=== PATIENT | female | born 1980 | race Caucasian/White ===

== ENCOUNTER 2018-03-29 12:41 | Emergency (ER) | payer BC ==
[2018-03-29 13:09] VITALS: RESP 18; TEMP 97.5
[2018-03-29] MEDS ORDERED: SODIUM CHLORIDE 0.9% 500 ML 500 ML IV STA (13:52)
[2018-03-29] MEDS ORDERED: DIAZEPAM 5 MG/ML 2 ML INJ IVP STA (13:53)
--- NOTE | 2018-03-29 13:56 | ED ---
General Adult HPI - General Chief complaint: Dizziness Stated complaint: Rt arm pain,coughing,dizzy Time Seen by Provider: 03/29/18 13:45 Source: patient, RN notes reviewed, old records reviewed Mode of arrival: ambulatory Limitations: no limitations - History of Present Illness Initial comments: 37-year-old female presents for evaluation of right arm pain, right-sided neck pain. Symptoms began while at rest, patient was sitting at her computer at work. She states she has had significant cough and URI symptoms. She denies any movement at the time of onset. She denies weakness, reports primarily pain in the right trapezius, right lateral neck, and proximal portion of the right upper extremity. She does report some muscle spasm and worsening pain with movement. Denies any central chest pain. Denies dyspnea. Denies numbness or weakness in the arm. - Related Data Home Medications Medication Instructions Recorded Confirmed Levothyroxine Sodium [Synthroid] 75 mcg PO DAILY 03/29/18 03/29/18 Previous Rx's Medication Instructions Recorded Ibuprofen [Motrin] 600 mg PO Q8HR PRN #24 tab 03/29/18 Allergies Allergy/AdvReac Type Severity Reaction Status Date / Time metoclopramide [From Reglan] AdvReac Hallucinati Verified 03/29/18 13:52 ons Review of Systems ROS Statement: Those systems with pertinent positive or pertinent negative responses have been documented in the HPI. ROS Other: All systems not noted in ROS Statement are negative. Past Medical History Past Medical History: Thyroid Disorder History of Any Multi-Drug Resistant Organisms: None Reported Past Surgical History: Appendectomy, Hysterectomy Past Psychological History: PTSD Smoking Status: Former smoker Past Alcohol Use History: Occasional Past Drug Use History: None Reported General Exam Limitations: no limitations General appearance: alert, in no apparent distress Head exam: Present: atraumatic, normocephalic Eye exam: Present: normal appearance, PERRL Neck exam: Present: normal inspection. Absent: tenderness, meningismus Respiratory exam: Present: normal lung sounds bilaterally. Absent: respiratory distress, wheezes Cardiovascular Exam: Present: regular rate, normal rhythm GI/Abdominal exam: Present: soft. Absent: distended, tenderness, guarding Extremities exam: Present: normal capillary refill, other (Radial pulse, 2+, normal cap refill throughout the entire right upper extremity, 2+ brachial pulse. Patient has some tenderness in the right trapezius, and deltoid. No midline tenderness. No clonus, normal range of motion of the neck. Normal sensation throughout right upper extremity). Absent: pedal edema Course Vital Signs 03/29/18 13:05 Temperature 97.5 F L Pulse Rate 75 Respiratory 18 Rate Blood Pressure 138/90 O2 Sat by Pulse 100 Oximetry EKG Findings - EKG Comments: EKG Findings:: EKG: Normal sinus rhythm with sinus arrhythmia, rate of 70, [place] interval 144, QRS duration 76, QTC 466, no ST segment changes Medical Decision Making - Medical Decision Making 37-year-old female with acute right arm pain, right trapezius pain. Distal pulses intact, normal cap refill, no sensory or motor deficit. Patient has had significant coughing spells and URI symptoms. Workup in the emergency department reveals normal white blood cell count, stable hemoglobin, normal CMP , negative troponin, negative influenza, chest x-ray negative for focal pneumonia. CT cervical spine is obtained and shows degenerative disc disease with narrowing and spondylolisthesis at C5-C6 with right foraminal encroachment. This does correspond with patient's pain. She is given Valium, Decadron in the emergency department on reevaluation she is feeling much better. She is not driving she will get a ride home. She is given Motrin prescription, and will follow-up with orthopedics. - Lab Data Result diagrams: 03/29/18 13:59 03/29/18 13:59 Lab Results 03/29/18 03/29/18 03/29/18 Range/Units 13:59 13:59 13:59 WBC 4.6 (3.8-10.6) k/uL RBC 4.82 (3.80-5.40) m/uL Hgb 14.6 (11.4-16.0) gm/dL Hct 44.0 (34.0-46.0) % MCV 91.3 (80.0-100.0) fL MCH 30.2 (25.0-35.0) pg MCHC 33.1 (31.0-37.0) g/dL RDW 12.6 (11.5-15.5) % Plt Count 294 (150-450) k/uL Neutrophils % 50 % Lymphocytes % 37 % Monocytes % 6 % Eosinophils % 3 % Basophils % 1 % Neutrophils # 2.3 (1.3-7.7) k/uL Lymphocytes # 1.7 (1.0-4.8) k/uL Monocytes # 0.3 (0-1.0) k/uL Eosinophils # 0.1 (0-0.7) k/uL Basophils # 0.1 (0-0.2) k/uL PT (9.0-12.0) sec INR (<1.2) APTT (22.0-30.0) sec Sodium 142 (137-145) mmol/L Potassium 4.8 (3.5-5.1) mmol/L Chloride 107 (98-107) mmol/L Carbon Dioxide 24 (22-30) mmol/L Anion Gap 11 mmol/L BUN 14 (7-17) mg/dL Creatinine 1.03 (0.52-1.04) mg/dL Est GFR (CKD-EPI)AfAm 79 (>60 ml/min/1.73 sqM) Est GFR (CKD-EPI)NonAf 69 (>60 ml/min/1.73 sqM) Glucose 93 (74-99) mg/dL Calcium 9.7 (8.4-10.2) mg/dL Magnesium 1.7 (1.6-2.3) mg/dL Total Bilirubin 0.7 (0.2-1.3) mg/dL AST 30 (14-36) U/L ALT 38 (9-52) U/L Alkaline Phosphatase 65 (38-126) U/L Total Creatine Kinase 251 H (30-135) U/L CK-MB (CK-2) 1.3 (0.0-2.4) ng/mL CK-MB (CK-2) Rel Index 0.5 Troponin I <0.012 (0.000-0.034) ng/mL Total Protein 8.0 (6.3-8.2) g/dL Albumin 4.7 (3.5-5.0) g/dL Influenza Type A RNA (Not Detectd) Influenza Type B (PCR) (Not Detectd) 03/29/18 03/29/18 Range/Units 13:59 13:59 WBC (3.8-10.6) k/uL RBC (3.80-5.40) m/uL Hgb (11.4-16.0) gm/dL Hct (34.0-46.0) % MCV (80.0-100.0) fL MCH (25.0-35.0) pg MCHC (31.0-37.0) g/dL RDW (11.5-15.5) % Plt Count (150-450) k/uL Neutrophils % % Lymphocytes % % Monocytes % % Eosinophils % % Basophils % % Neutrophils # (1.3-7.7) k/uL Lymphocytes # (1.0-4.8) k/uL Monocytes # (0-1.0) k/uL Eosinophils # (0-0.7) k/uL Basophils # (0-0.2) k/uL PT 9.7 (9.0-12.0) sec INR 0.9 (<1.2) APTT 24.6 (22.0-30.0) sec Sodium (137-145) mmol/L Potassium (3.5-5.1) mmol/L Chloride (98-107) mmol/L Carbon Dioxide (22-30) mmol/L Anion Gap mmol/L BUN (7-17) mg/dL Creatinine (0.52-1.04) mg/dL Est GFR (CKD-EPI)AfAm (>60 ml/min/1.73 sqM) Est GFR (CKD-EPI)NonAf (>60 ml/min/1.73 sqM) Glucose (74-99) mg/dL Calcium (8.4-10.2) mg/dL Magnesium (1.6-2.3) mg/dL Total Bilirubin (0.2-1.3) mg/dL AST (14-36) U/L ALT (9-52) U/L Alkaline Phosphatase (38-126) U/L Total Creatine Kinase (30-135) U/L CK-MB (CK-2) (0.0-2.4) ng/mL CK-MB (CK-2) Rel Index Troponin I (0.000-0.034) ng/mL Total Protein (6.3-8.2) g/dL Albumin (3.5-5.0) g/dL Influenza Type A RNA Not Detected (Not Detectd) Influenza Type B (PCR) Not Detected (Not Detectd) Disposition Clinical Impression: Cervical radiculopathy Disposition: HOME SELF-CARE Condition: Good Instructions (If sedation given, give patient instructions): Cervical Radiculopathy (ED), Acute Neck Pain (ED) Prescriptions: Ibuprofen [Motrin] 600 mg PO Q8HR PRN #24 tab PRN Reason: Pain Is patient prescribed a controlled substance at d/c from ED?: No Referrals: None,Stated [REFERRING] - 1-2 days Sara Yi DO [Doctor of Osteopathic Medicine] - 1-2 days Time of Disposition: 15:44
[2018-03-29 14:22] LABS: Basophils # (A) 0.1 k/uL (0-0.2); Basophils % (A) 1 %; Eosinophils # (A) 0.1 k/uL (0-0.7); Eosinophils % (A) 3 %; HGB 14.6 gm/dL (11.4-16.0); Lymphocytes # (A) 1.7 k/uL (1.0-4.8); Lymphocytes % (A) 37 %; MCH 30.2 pg (25.0-35.0); MCHC 33.1 g/dL (31.0-37.0); MCV 91.3 fL (80.0-100.0); Mean Platelet Volume 7.8; Monocytes # (A) 0.3 k/uL (0-1.0); Monocytes % (A) 6 %; Neutrophils # (A) 2.3 k/uL (1.3-7.7); Neutrophils % (A) 50 %; Platelet Count 294 k/uL (150-450); RBC 4.82 m/uL (3.80-5.40); RDW 12.6 % (11.5-15.5); WBC 4.6 k/uL (3.8-10.6)
[2018-03-29 14:34] LABS: Albumin 4.7 g/dL (3.5-5.0); Calcium 9.7 mg/dL (8.4-10.2); Magnesium 1.7 mg/dL (1.6-2.3); Potassium 4.8 mmol/L (3.5-5.1); Total Bilirubin 0.7 mg/dL (0.2-1.3)
[2018-03-29 14:37] LABS: INR 0.9 (<1.2); Partial Thromboplastin Time 24.6 sec (22.0-30.0); Prothrombin Time 9.7 sec (9.0-12.0)
[2018-03-29 14:49] LABS: Creatine Kinase 251 U/L (30-135)
--- NOTE | 2018-03-29 14:55 | CT ---
EXAMINATION TYPE: CT cervical spine wo con DATE OF EXAM: 03/29/2018 COMPARISON: None HISTORY: Right arm pain, Coughing and dizziness CT DLP: 336.[address] of the cervical spine was performed with bone and soft tissue window settings submitted . Coronal and sagittal reconstruction is obtained. There is normal alignment and prevertebral soft tissues. I do not see evidence for fracture or subluxation. Moderate degenerative narrowing identifi ed at C5-6 with ventral and dorsal spondylosis. Right paracentral hard disc effaces the ventral theca l sac and results in right sided foraminal encroachment. No definite evidence for central stenosis or jonas herniation. Remaining levels are within normal limits. The lung apices are clear IMPRESSION: Degenerative disc space narrowing with associated spondylosis and hard disc at C5-6 with right foraminal encroachment.
[2018-03-29 15:02] LABS: Creatine Kinase MB 1.3 ng/mL (0.0-2.4); Troponin I <0.012 ng/mL (0.000-0.034)
--- NOTE | 2018-03-29 15:25 | XR ---
EXAMINATION TYPE: XR chest 2V DATE OF EXAM: 03/29/2018 COMPARISON: NONE HISTORY: Chest pain TECHNIQUE: Frontal and lateral views of the chest are obtained. FINDINGS: There is no focal air space opacity, pleural effusion, or pneumothorax seen. The cardiac silhouette size is within normal limits. The osseous structures are intact. IMPRESSION: No acute cardiopulmonary process.
[2018-03-29] MEDS ORDERED: DEXAMETHASONE SOD PHOSPHATE 10 MG/ML 1 ML VIAL IV STA (15:34)
[2018-03-29 16:06] VITALS: BP 138/98; PULSE 68
== END 2018-03-29 16:05 | disposition home or self-care (01) ==
LOC: EC 12:41
DX: M43.12 Spondylolisthesis, cervical region (principal); M50.122 Cervical disc disorder at C5-C6 level with radiculopathy; E07.9 Disorder of thyroid, unspecified; Z87.891 Personal history of nicotine dependence; Z79.890 Hormone replacement therapy; Z88.8 Allergy status to other drugs, medicaments and biological substances
CPT/HCPCS: 36415; 93005; 80053; 82550; 82553; 83735; 84484; 85025; 85610; 85730; 87502; 71046; 72125; 99285; 96374; 96375; 96361; J1100; J3360

== ENCOUNTER 2018-08-16 05:36 | Emergency (ER) | payer BC ==
--- NOTE | 2018-08-16 05:59 | ED ---
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 Patient reports that over the past few days she's been having more frequent abdominal cramping and discomfort. She reports that after she eats she feels that food just stays in her stomach and then she'll vomit hours later. Patient reports that she was seen by a Dr. Doroteo Gama last month and had a computed tomography scan without contrast and was told everything was normal. Patient reports that this she's continued to have these symptoms on a daily basis. Today she felt nauseated he came to the ER for evaluation. Patient reports her last bowel movement was yesterday. - Related Data Previous Rx's Medication Instructions Recorded Dicyclomine [Bentyl] 10 mg PO TID PRN #30 capsule 08/16/18 Polyethylene Glycol 3350 [Miralax] 17 gm PO DAILY #527 gm 08/16/18 Allergies Allergy/AdvReac Type Severity Reaction Status Date / Time metoclopramide [From Reglan] AdvReac Hallucinati Verified 08/16/18 07:43 ons Review of Systems ROS Statement: Those systems with pertinent positive or pertinent negative responses have been documented in the HPI. ROS Other: All systems not noted in ROS Statement are negative. Past Medical History Past Medical History: Thyroid Disorder History of Any Multi-Drug Resistant Organisms: None Reported Past Surgical History: Appendectomy, Hysterectomy Additional Past Surgical History / Comment(s): malrotation surgery 2011 Past Psychological History: PTSD Smoking Status: Former smoker Past Alcohol Use History: Occasional Past Drug Use History: None Reported General Exam - General Exam Comments Initial Comments: Physical Exam GENERAL: Patient is well-developed and well-nourished. Patient is nontoxic and well- hydrated and is in no distress. HENT: Normocephalic, Atraumatic. EYES: PERRL, EOMI PULMONARY: Unlabored respirations. No audible rales rhonchi or wheezing was noted. CARDIOVASCULAR: There is a regular rate and rhythm without any murmurs gallops or rubs. ABDOMEN: Soft and nontender with normal bowel sounds. SKIN: Skin is clear with no lesions or rashes and otherwise unremarkable. : Deferred NEUROLOGIC: Patient is alert and oriented x3. Moving all extremities spontaneously MUSCULOSKELETAL: Normal extremities with adequate strength and full range of motion. No lower extremity swelling or edema. No calf tenderness. PSYCHIATRIC: Normal psychiatric evaluation Limitations: no limitations Course Vital Signs 08/16/18 08/16/18 05:52 08:17 Temperature 97.9 F 98.0 F Pulse Rate 63 62 Respiratory 18 16 Rate Blood Pressure 140/100 111/68 O2 Sat by Pulse 100 98 Oximetry Medical Decision Making - Medical Decision Making The patient was seen and evaluated, history was obtained and the patient Labs and imaging were ordered Mental was ordered for pain and Zofran for nausea Labs reveal no significant abnormalities creatinine mildly elevated at 1.1 X-ray with no acute findings I discussed with the patient options for further imaging, considering that the patient and a normal computed tomography scan of the abdomen last month I do not feel she would benefit from repeat CT scanning. As he symptoms are chronic. I discussed with the patient the risk and benefit of repeated exposures. At this point I recommended the patient follow up with gastroenterology for reevaluation and discuss with her the possibility of gastroparesis that she is having symptoms which may be due to gastroparesis. All questions pertaining care were answered return parameters were discussed patient was discharged home in stable condition. - Lab Data Result diagrams: 08/16/18 06:19 08/16/18 06:19 Lab Results 08/16/18 08/16/18 08/16/18 Range/Units 06:19 06:19 06:30 WBC 7.3 (3.8-10.6) k/uL RBC 4.60 (3.80-5.40) m/uL Hgb 13.6 (11.4-16.0) gm/dL Hct 42.2 (34.0-46.0) % MCV 91.9 (80.0-100.0) fL MCH 29.6 (25.0-35.0) pg MCHC 32.2 (31.0-37.0) g/dL RDW 12.5 (11.5-15.5) % Plt Count 279 (150-450) k/uL Neutrophils % 70 % Lymphocytes % 20 % Monocytes % 5 % Eosinophils % 4 % Basophils % 1 % Neutrophils # 5.1 (1.3-7.7) k/uL Lymphocytes # 1.5 (1.0-4.8) k/uL Monocytes # 0.3 (0-1.0) k/uL Eosinophils # 0.3 (0-0.7) k/uL Basophils # 0.1 (0-0.2) k/uL Sodium 139 (137-145) mmol/L Potassium 4.6 (3.5-5.1) mmol/L Chloride 103 (98-107) mmol/L Carbon Dioxide 28 (22-30) mmol/L Anion Gap 8 mmol/L BUN 15 (7-17) mg/dL Creatinine 1.14 H (0.52-1.04) mg/dL Est GFR (CKD-EPI)AfAm 70 (>60 ml/min/1.73 sqM) Est GFR (CKD-EPI)NonAf 61 (>60 ml/min/1.73 sqM) Glucose 92 (74-99) mg/dL Calcium 9.0 (8.4-10.2) mg/dL Total Bilirubin 0.7 (0.2-1.3) mg/dL AST 21 (14-36) U/L ALT 25 (9-52) U/L Alkaline Phosphatase 78 (38-126) U/L Total Protein 7.2 (6.3-8.2) g/dL Albumin 4.3 (3.5-5.0) g/dL Lipase 85 (23-300) U/L Urine Color Urine Appearance (Clear) Urine pH (5.0-8.0) Ur Specific [place] (1.001-1.035) Urine Protein (Negative) Urine Glucose (UA) (Negative) Urine Ketones (Negative) Urine Blood (Negative) Urine Nitrite (Negative) Urine Bilirubin (Negative) Urine Urobilinogen (<2.0) mg/dL Ur Leukocyte Esterase (Negative) Urine WBC (0-5) /hpf Ur Squamous Epith Cells (0-4) /hpf Urine Bacteria (None) /hpf Urine Mucus (None) /hpf Urine HCG, Qual Not Detected (Not Detectd) 08/16/18 Range/Units 06:30 WBC (3.8-10.6) k/uL RBC (3.80-5.40) m/uL Hgb (11.4-16.0) gm/dL Hct (34.0-46.0) % MCV (80.0-100.0) fL MCH (25.0-35.0) pg MCHC (31.0-37.0) g/dL RDW (11.5-15.5) % Plt Count (150-450) k/uL Neutrophils % % Lymphocytes % % Monocytes % % Eosinophils % % Basophils % % Neutrophils # (1.3-7.7) k/uL Lymphocytes # (1.0-4.8) k/uL Monocytes # (0-1.0) k/uL Eosinophils # (0-0.7) k/uL Basophils # (0-0.2) k/uL Sodium (137-145) mmol/L Potassium (3.5-5.1) mmol/L Chloride (98-107) mmol/L Carbon Dioxide (22-30) mmol/L Anion Gap mmol/L BUN (7-17) mg/dL Creatinine (0.52-1.04) mg/dL Est GFR (CKD-EPI)AfAm (>60 ml/min/1.73 sqM) Est GFR (CKD-EPI)NonAf (>60 ml/min/1.73 sqM) Glucose (74-99) mg/dL Calcium (8.4-10.2) mg/dL Total Bilirubin (0.2-1.3) mg/dL AST (14-36) U/L ALT (9-52) U/L Alkaline Phosphatase (38-126) U/L Total Protein (6.3-8.2) g/dL Albumin (3.5-5.0) g/dL Lipase (23-300) U/L Urine Color Yellow Urine Appearance Cloudy H (Clear) Urine pH 5.5 (5.0-8.0) Ur Specific [place] 1.023 (1.001-1.035) Urine Protein Trace H (Negative) Urine Glucose (UA) Negative (Negative) Urine Ketones Negative (Negative) Urine Blood Negative (Negative) Urine Nitrite Negative (Negative) Urine Bilirubin Negative (Negative) Urine Urobilinogen <2.0 (<2.0) mg/dL Ur Leukocyte Esterase Negative (Negative) Urine WBC 1 (0-5) /hpf Ur Squamous Epith Cells 6 H (0-4) /hpf Urine Bacteria Rare H (None) /hpf Urine Mucus Few H (None) /hpf Urine HCG, Qual (Not Detectd) Disposition Clinical Impression: Abdominal pain Disposition: HOME SELF-CARE Condition: Stable Instructions (If sedation given, give patient instructions): Acute Abdominal Pain (ED) Prescriptions: Dicyclomine [Bentyl] 10 mg PO TID PRN #30 capsule PRN Reason: Pain Polyethylene Glycol 3350 [Miralax] 17 gm PO DAILY #527 gm Is patient prescribed a controlled substance at d/c from ED?: No Referrals: Moreno Mcwilliams MD [Primary Care Provider] - 1-2 days Scott Edwards MD [STAFF PHYSICIAN] - 1-2 days Padilla Barriga MD [STAFF PHYSICIAN] - 1-2 days
[2018-08-16] MEDS ORDERED: SODIUM CHLORIDE 0.9% 1,000 ML IV STA (06:00)
[2018-08-16] MEDS ORDERED: ONDANSETRON 4 MG/2 ML VIAL IVP STA (06:00)
[2018-08-16 06:41] LABS: Basophils # (A) 0.1 k/uL (0-0.2); Basophils % (A) 1 %; Eosinophils # (A) 0.3 k/uL (0-0.7); Eosinophils % (A) 4 %; HCT 42.2 % (34.0-46.0); HGB 13.6 gm/dL (11.4-16.0); Lymphocytes # (A) 1.5 k/uL (1.0-4.8); Lymphocytes % (A) 20 %; MCH 29.6 pg (25.0-35.0); MCHC 32.2 g/dL (31.0-37.0); MCV 91.9 fL (80.0-100.0); Mean Platelet Volume 7.6; Monocytes # (A) 0.3 k/uL (0-1.0); Monocytes % (A) 5 %; Neutrophils # (A) 5.1 k/uL (1.3-7.7); Neutrophils % (A) 70 %; Platelet Count 279 k/uL (150-450); RDW 12.5 % (11.5-15.5); WBC 7.3 k/uL (3.8-10.6)
[2018-08-16 06:52] LABS: Albumin 4.3 g/dL (3.5-5.0); Potassium 4.6 mmol/L (3.5-5.1); Total Bilirubin 0.7 mg/dL (0.2-1.3); Total Protein 7.2 g/dL (6.3-8.2)
[2018-08-16 07:06] LABS: Appearance,Urine Cloudy (Clear); Bacteria,Urine Rare /hpf; Bilirubin,Urine Negative (Negative); Blood,Urine Negative (Negative); Color,Urine Yellow; Glucose,Urine (UA) Negative (Negative); Ketones,Urine Negative (Negative); Leukocyte Esterase,Urine Negative (Negative); Mucus,Urine Few /hpf; Nitrite,Urine Negative (Negative); PH, Urine 5.5 (5.0-8.0); Protein,Urine Trace (Negative); Specific Gravity,Urine 1.023 (1.001-1.035); Squamous Epithelial Cell,Urine 6 /hpf (0-4); Urobilinogen,Urine <2.0 mg/dL (<2.0); WBC,Urine 1 /hpf (0-5)
[2018-08-16] MEDS ORDERED: DICYCLOMINE 10 MG/ML 2 ML AMP IM STA (07:36)
--- NOTE | 2018-08-16 07:43 | XR ---
EXAMINATION TYPE: XR KUB DATE OF EXAM: 08/16/2018 7:12 AM CLINICAL HISTORY: Abdominal pain TECHNIQUE: Single upright image of the abdomen is obtained. COMPARISON: None. FINDINGS: Scattered gas is seen in nondilated small bowel loops. Gas and fecal material is seen in no ndilated colon. There is no or abnormal calcification appreciated. The lung bases are clear and the o sseous structures are intact. Small phleboliths are seen within the pelvis. IMPRESSION: Nonobstructive bowel gas pattern.
[2018-08-16 08:19] VITALS: BP 111/68; PULSE 62; RESP 16; TEMP 98
== END 2018-08-16 08:29 | disposition home or self-care (01) ==
LOC: EC 05:36
DX: R10.9 Unspecified abdominal pain (principal); R11.0 Nausea; R79.89 Other specified abnormal findings of blood chemistry; Z90.49 Acquired absence of other specified parts of digestive tract; Z90.710 Acquired absence of both cervix and uterus; Z87.891 Personal history of nicotine dependence; Z88.8 Allergy status to other drugs, medicaments and biological substances
CPT/HCPCS: 36415; 80053; 83690; 85025; 81001; 81025; 74018; 99284; 96374; 96361; 96372; J0500; J2405

== ENCOUNTER 2019-12-12 09:46 | Emergency (ER) | payer BC, OTHER ==
[2019-12-12] MEDS ORDERED: SODIUM CHLORIDE 0.9% 1,000 ML IV STA (10:25)
[2019-12-12] MEDS ORDERED: NALOXONE 0.4 MG/ML 1 ML VIAL IVP STA (10:26)
[2019-12-12] MEDS ORDERED: ONDANSETRON 4 MG/2 ML VIAL IVP STA (10:26)
[2019-12-12] MEDS ORDERED: ACETAMINOPHEN TAB 325 MG TAB PO STA ×2 (10:26→11:48)
[2019-12-12 11:04] LABS: Basophils # (A) 0.1 k/uL (0-0.2); Basophils % (A) 1 %; Eosinophils # (A) 0.1 k/uL (0-0.7); Eosinophils % (A) 1 %; HGB 14.9 gm/dL (11.4-16.0); Lymphocytes # (A) 1.5 k/uL (1.0-4.8); Lymphocytes % (A) 28 %; MCH 30.9 pg (25.0-35.0); MCHC 32.5 g/dL (31.0-37.0); MCV 95.2 fL (80.0-100.0); Mean Platelet Volume 8.3; Monocytes # (A) 0.2 k/uL (0-1.0); Monocytes % (A) 5 %; Neutrophils # (A) 3.3 k/uL (1.3-7.7); Neutrophils % (A) 63 %; Platelet Count 274 k/uL (150-450); RBC 4.83 m/uL (3.80-5.40); RDW 12.2 % (11.5-15.5); WBC 5.2 k/uL (3.8-10.6)
[2019-12-12 11:17] LABS: ALT 17 U/L (4-34); AST 25 U/L (14-36); Acetaminophen <10.0 ug/mL; African American GFR (CKD) 84 (>60 ml/min/1.73 sqM); Albumin 4.7 g/dL (3.5-5.0); Alcohol <10 mg/dL; Alkaline Phosphatase 72 U/L (38-126); Anion Gap 10 mmol/L; Blood Urea Nitrogen 18 mg/dL (7-17); Calcium 9.4 mg/dL (8.4-10.2); Carbon Dioxide 22 mmol/L (22-30); Chloride 107 mmol/L (98-107); Glucose 83 mg/dL (74-99); Non-African American GFR(CKD) 73 (>60 ml/min/1.73 sqM); Potassium 4.3 mmol/L (3.5-5.1); Salicylate <1.0 mg/dL; Sodium 139 mmol/L (137-145); Total Bilirubin 0.7 mg/dL (0.2-1.3)
[2019-12-12 11:22] LABS: Appearance,Urine Cloudy (Clear); Bacteria,Urine Occasional /hpf; Bilirubin,Urine Negative (Negative); Blood,Urine Negative (Negative); Color,Urine Yellow; Glucose,Urine (UA) Negative (Negative); Ketones,Urine Trace (Negative); Leukocyte Esterase,Urine Negative (Negative); Mucus,Urine Many /hpf; Nitrite,Urine Negative (Negative); PH, Urine 5.5 (5.0-8.0); Protein,Urine Trace (Negative); Specific Gravity,Urine 1.025 (1.001-1.035); Squamous Epithelial Cell,Urine 7 /hpf (0-4); Urobilinogen,Urine <2.0 mg/dL (<2.0); WBC,Urine 1 /hpf (0-5)
[2019-12-12 11:26] LABS: Amphetamine Screen,Urine Not Detected (NotDetected); Barbiturate Screen,Urine Not Detected (NotDetected); Benzodiazepines Screen,Urine Not Detected (NotDetected); Cocaine Screen,Urine Not Detected (NotDetected); Methadone Screen, Urine Not Detected (NotDetected); Opiate Screen,Urine Not Detected (NotDetected); Oxycodone Screen, Urine Not Detected (NotDetected); Phencyclidine Screen,Urine Not Detected (NotDetected); Tricyclic Antidepressant,Urine Not Detected (NotDetected); Urn Cannabinoid Scrn Not Detected (NotDetected)
--- NOTE | 2019-12-12 11:28 | ED ---
General Adult HPI - General Chief complaint: Dizziness Stated complaint: [facility] - poss drug exposure Time Seen by Provider: 12/12/19 10:12 Source: patient, RN notes reviewed, old records reviewed Mode of arrival: wheelchair Limitations: no limitations - History of Present Illness Initial comments: 39-year-old female patient to ED for evaluation of possible exposure to drugs. Patient reports that she was emptying a drug box when all of a sudden she began to feel nauseous had a headache felt weak and dizzy and a small amount of chest tightness. She reports that she was wearing gloves however she believes she may have touched her face and many of the pills were not in bags and were crushed. She denies chance of due to hysterectomy. She denies any other acute complaints. Systemic: Pt denies fatigue, fever/chills, rash. Pt denies weakness, night sweats, weight loss. Neuro: Pt denies visual disturbances, syncope or pre-syncope. HEENT: Pt denies ocular discharge or irritation, otalgia, rhinorrhea, pharyngitis or notable lymphadenopathy. Cardiopulmonary: Pt denies chest pain, SOB, heart palpitations, dyspnea on exertion. Abdominal/GI: Pt denies abdominal pain, n/v/d. : Pt denies dysuria, burning w/ urination, frequency/urgency. Denies new onset urinary or bowel incontinence. MSK: Pt denies myalgia, loss of strength or function in extremities. Neuro: Pt denies new onset weakness, paresthesias. - Related Data Home Medications Medication Instructions Recorded Confirmed Albuterol Inhaler [Ventolin Hfa 2 puff INHALATION RT-Q4H PRN 12/12/19 12/12/19 Inhaler] Escitalopram [Lexapro] 10 mg PO DAILY 12/12/19 12/12/19 Levothyroxine Sodium [Synthroid] 50 mcg PO DAILY 12/12/19 12/12/19 Modafinil [Provigil] 100 - 200 mg PO QAM 12/12/19 12/12/19 Allergies Allergy/AdvReac Type Severity Reaction Status Date / Time metoclopramide [From Reglan] AdvReac Hallucinati Verified 12/12/19 10:58 ons Review of Systems ROS Statement: Those systems with pertinent positive or pertinent negative responses have been documented in the HPI. ROS Other: All systems not noted in ROS Statement are negative. Past Medical History Past Medical History: Thyroid Disorder History of Any Multi-Drug Resistant Organisms: None Reported Past Surgical History: Appendectomy, Hysterectomy Additional Past Surgical History / Comment(s): malrotation surgery 2010 Past Psychological History: PTSD Past Alcohol Use History: Occasional Past Drug Use History: None Reported General Exam - General Exam Comments Initial Comments: Constitutional: NAD, AOX3, Pt has pleasant affect. HEENT: NC/AT, trachea midline, neck supple, no lymphadenopathy. Posterior pharynx non erythematous, without exudates. External ears appear normal, without discharge. Mucous membranes moist. Eyes PERRLA, EOM intact. There is no scleral icterus. No pallor noted. Cardiopulmonary: RRR, no murmurs, rubs or gallops, no JVD noted. Lungs CTAB in anterior and posterior raygoza. No peripheral edema. Abdominal exam: Abdomen soft and non-distended. Abdomen non-tender to palpation in all 4 quadrants. Bowel sounds active in LLQ. No hepatosplenomegaly. No ecchym osis Neuro: CN II-XII intact. No nuchal rigidity. No raccon eyes, no gifford sign, no hemotympanum. No cervical spinal tenderness. MSK: No posterior calf tenderness bilaterally, homans sign negative bilaterally. Posterior tibialis and radial pulse +2 bilaterally. Sensation intact in upper and lower extremities. Full active ROM in upper and lower extremities, 5/5 stregnth. Limitations: no limitations Course Vital Signs 12/12/19 12/12/19 12/12/19 09:48 11:00 11:31 Temperature 97.0 F L Pulse Rate 80 64 Respiratory 18 18 Rate Blood Pressure 174/120 140/102 145/99 O2 Sat by Pulse 98 100 Oximetry 12/12/19 12/12/19 11:42 13:04 Temperature 98.2 F Pulse Rate 78 70 Respiratory 18 17 Rate Blood Pressure 148/99 137/97 O2 Sat by Pulse 97 97 Oximetry Medical Decision Making - Medical Decision Making 39-year-old female patient ED for evaluation after possible drug exposure. Patient is entering a drug box with had crushed pills in an office and she began to feel shaky had a generalized headache. Bowel evaluation patient will signs are stable, afebrile. Physical exam negative for acute pathology. Patient administered IV fluids and nausea medication, headache is feeling much improved. Laboratory investigations and tox screen unremarkable. EKG noniscehmic. Patient will be discharged with close return precautions. Case discussed with Dr. Acosta. - Lab Data Result diagrams: 12/12/19 10:41 12/12/19 10:41 Lab Results 12/12/19 12/12/19 12/12/19 Range/Units 10:41 10:41 10:41 WBC 5.2 (3.8-10.6) k/uL RBC 4.83 (3.80-5.40) m/uL Hgb 14.9 (11.4-16.0) gm/dL Hct 46.0 (34.0-46.0) % MCV 95.2 (80.0-100.0) fL MCH 30.9 (25.0-35.0) pg MCHC 32.5 (31.0-37.0) g/dL RDW 12.2 (11.5-15.5) % Plt Count 274 (150-450) k/uL Neutrophils % 63 % Lymphocytes % 28 % Monocytes % 5 % Eosinophils % 1 % Basophils % 1 % Neutrophils # 3.3 (1.3-7.7) k/uL Lymphocytes # 1.5 (1.0-4.8) k/uL Monocytes # 0.2 (0-1.0) k/uL Eosinophils # 0.1 (0-0.7) k/uL Basophils # 0.1 (0-0.2) k/uL Sodium 139 (137-145) mmol/L Potassium 4.3 (3.5-5.1) mmol/L Chloride 107 (98-107) mmol/L Carbon Dioxide 22 (22-30) mmol/L Anion Gap 10 mmol/L BUN 18 H (7-17) mg/dL Creatinine 0.97 (0.52-1.04) mg/dL Est GFR (CKD-EPI)AfAm 84 (>60 ml/min/1.73 sqM) Est GFR (CKD-EPI)NonAf 73 (>60 ml/min/1.73 sqM) Glucose 83 (74-99) mg/dL Calcium 9.4 (8.4-10.2) mg/dL Total Bilirubin 0.7 (0.2-1.3) mg/dL AST 25 (14-36) U/L ALT 17 (4-34) U/L Alkaline Phosphatase 72 (38-126) U/L Troponin I (0.000-0.034) ng/mL Total Protein 8.0 (6.3-8.2) g/dL Albumin 4.7 (3.5-5.0) g/dL Urine Color Yellow Urine Appearance Cloudy H (Clear) Urine pH 5.5 (5.0-8.0) Ur Specific Noti 1.025 (1.001-1.035) Urine Protein Trace H (Negative) Urine Glucose (UA) Negative (Negative) Urine Ketones Trace H (Negative) Urine Blood Negative (Negative) Urine Nitrite Negative (Negative) Urine Bilirubin Negative (Negative) Urine Urobilinogen <2.0 (<2.0) mg/dL Ur Leukocyte Esterase Negative (Negative) Urine WBC 1 (0-5) /hpf Ur Squamous Epith Cells 7 H (0-4) /hpf Urine Bacteria Occasional H (None) /hpf Urine Mucus Many H (None) /hpf Salicylates <1.0 mg/dL Urine Opiates Screen Not Detected (NotDetected) Ur Oxycodone Screen Not Detected (NotDetected) Urine Methadone Screen Not Detected (NotDetected) Ur Propoxyphene Screen Not Detected (NotDetected) Acetaminophen <10.0 ug/mL Ur Barbiturates Screen Not Detected (NotDetected) U Tricyclic Antidepress Not Detected (NotDetected) Ur Phencyclidine Scrn Not Detected (NotDetected) Ur Amphetamines Screen Not Detected (NotDetected) U Methamphetamines Scrn Not Detected (NotDetected) U Benzodiazepines Scrn Not Detected (NotDetected) Urine Cocaine Screen Not Detected (NotDetected) U Marijuana (THC) Screen Not Detected (NotDetected) Serum Alcohol <10 mg/dL 12/12/19 Range/Units 10:41 WBC (3.8-10.6) k/uL RBC (3.80-5.40) m/uL Hgb (11.4-16.0) gm/dL Hct (34.0-46.0) % MCV (80.0-100.0) fL MCH (25.0-35.0) pg MCHC (31.0-37.0) g/dL RDW (11.5-15.5) % Plt Count (150-450) k/uL Neutrophils % % Lymphocytes % % Monocytes % % Eosinophils % % Basophils % % Neutrophils # (1.3-7.7) k/uL Lymphocytes # (1.0-4.8) k/uL Monocytes # (0-1.0) k/uL Eosinophils # (0-0.7) k/uL Basophils # (0-0.2) k/uL Sodium (137-145) mmol/L Potassium (3.5-5.1) mmol/L Chloride (98-107) mmol/L Carbon Dioxide (22-30) mmol/L Anion Gap mmol/L BUN (7-17) mg/dL Creatinine (0.52-1.04) mg/dL Est GFR (CKD-EPI)AfAm (>60 ml/min/1.73 sqM) Est GFR (CKD-EPI)NonAf (>60 ml/min/1.73 sqM) Glucose (74-99) mg/dL Calcium (8.4-10.2) mg/dL Total Bilirubin (0.2-1.3) mg/dL AST (14-36) U/L ALT (4-34) U/L Alkaline Phosphatase (38-126) U/L Troponin I <0.012 (0.000-0.034) ng/mL Total Protein (6.3-8.2) g/dL Albumin (3.5-5.0) g/dL Urine Color Urine Appearance (Clear) Urine pH (5.0-8.0) Ur Specific Noti (1.001-1.035) Urine Protein (Negative) Urine Glucose (UA) (Negative) Urine Ketones (Negative) Urine Blood (Negative) Urine Nitrite (Negative) Urine Bilirubin (Negative) Urine Urobilinogen (<2.0) mg/dL Ur Leukocyte Esterase (Negative) Urine WBC (0-5) /hpf Ur Squamous Epith Cells (0-4) /hpf Urine Bacteria (None) /hpf Urine Mucus (None) /hpf Salicylates mg/dL Urine Opiates Screen (NotDetected) Ur Oxycodone Screen (NotDetected) Urine Methadone Screen (NotDetected) Ur Propoxyphene Screen (NotDetected) Acetaminophen ug/mL Ur Barbiturates Screen (NotDetected) U Tricyclic Antidepress (NotDetected) Ur Phencyclidine Scrn (NotDetected) Ur Amphetamines Screen (NotDetected) U Methamphetamines Scrn (NotDetected) U Benzodiazepines Scrn (NotDetected) Urine Cocaine Screen (NotDetected) U Marijuana (THC) Screen (NotDetected) Serum Alcohol mg/dL - EKG Data -: EKG Interpreted by Me (and Dr. Acosta ) EKG Comments: ventricular rate 71, TX interval 122, QRS 80, QT/QTc 412/447. Normal sinus rhythm, normal EKG, no concern for acute ischemia. Disposition Clinical Impression: Headache Narrative: possible drug exposure Disposition: HOME SELF-CARE Instructions (If sedation given, give patient instructions): Dizziness (ED) Additional Instructions: Follow up with PCP tomorrow. Return to ED with any worsening symptoms. Is patient prescribed a controlled substance at d/c from ED?: No Referrals: Moreno Mcwilliams MD [Primary Care Provider] - 1-2 days
[2019-12-12 13:05] VITALS: BP 137/97; PULSE 70; RESP 17; TEMP 98.2
== END 2019-12-12 13:05 | disposition home or self-care (01) ==
LOC: EC 09:46
DX: R51.9 Headache, unspecified (principal); R11.0 Nausea; E07.9 Disorder of thyroid, unspecified; Z79.899 Other long term (current) drug therapy; Z79.890 Hormone replacement therapy; Z88.8 Allergy status to other drugs, medicaments and biological substances; Z90.710 Acquired absence of both cervix and uterus
CPT/HCPCS: 36415; 93005; 80053; 84484; 85025; 81001; 80306; 83520; 80329; 80320; 99284; 96374; 96361; J2405

== ENCOUNTER → 2020-03-19 | Outpatient (CLI) | payer BC, OTHER ==
--- NOTE | 2020-03-19 22:05 | MR ---
MRI CERVICAL SPINE: CLINICAL HISTORY: Loss of feeling and movement in both arms and fingers. TECHNIQUE: Multiplanar, multisequence imaging of the cervical spine is performed without IV contrast. COMPARISON: CT cervical spine March 29, 2018. FINDINGS: Coronal images show levoconvex scoliotic curvature centered upper thoracic spine. Sagittal images of the cervical spine show the craniocervical junction to remain within normal limits. The ce rvical and upper thoracic spinal cord is normal in caliber and signal. Sagittal images show new grade 1 retrolisthesis C5 on C6. Persistent mild to moderate disc space narrowing and spurring at this le harjit heterogeneous Modic type II endplate changes. The vertebral body heights are normal. Axial images show C2-C3 level to appear within normal limits. Axial images at C3-C4 level show right-sided uncovertebral facet spurring causing mild right-sided ne ural foraminal narrowing. Axial images at C4-C5 level are within normal limits. Axial images at C5-C6 level shows spondylosis with broad-based posterior disc protrusion effacing the anterior thecal sac and causing mild right along with moderate to severe left-sided neural foraminal narrowing due to foraminal spur disc complex. Axial images at C6-C7 level show broad-based posterior disc protrusion effacing anterior thecal sac a nd causing mild to moderate left-sided neural foraminal narrowing. Axial images at C7-T1 level are within normal limits. IMPRESSION: Multilevel degenerative changes greatest at C5-C6 level as detailed above.
== END | disposition home or self-care (01) ==
LOC: RADMRIMAIN 21:14
PROVIDERS: ATTEND Family Medicine
DX: M47.22 Other spondylosis with radiculopathy, cervical region (principal)
CPT/HCPCS: 72141

== ENCOUNTER 2020-07-30 11:37 | Inpatient (IN) | payer BC ==
--- NOTE | 2020-07-30 12:05 | ED ---
General Adult HPI - General Chief complaint: Neuro Symptoms/Deficit Stated complaint: right side numbness Time Seen by Provider: 07/30/20 11:52 Source: patient, RN notes reviewed Mode of arrival: ambulatory Limitations: no limitations - History of Present Illness Initial comments: Patient is a pleasant 39-year-old female presenting to the emergency department with concerns regarding right arm sensation and weakness. Onset of symptoms was just over an hour ago, around 1045. Patient does have chronic neck problems with degenerative changes at C6. No history of previous weakness before. Patient has mild persistent neck discomfort that is normal and unchanged for her. Patient complains of paresthesias of the right arm, and somewhat of the right trunk. Patient does have difficulty moving her right arm. No headache or confusion. No left-sided involvement. No leg involvement. Patient does feel somewhat lightheaded. No history of arm weakness previously. - Related Data Home Medications Medication Instructions Recorded Confirmed Albuterol Inhaler [Ventolin Hfa 2 puff INHALATION RT-Q4H PRN 12/12/19 12/12/19 Inhaler] Escitalopram [Lexapro] 10 mg PO DAILY 12/12/19 12/12/19 Levothyroxine Sodium [Synthroid] 50 mcg PO DAILY 12/12/19 12/12/19 Modafinil [Provigil] 100 - 200 mg PO QAM 12/12/19 12/12/19 Allergies Allergy/AdvReac Type Severity Reaction Status Date / Time metoclopramide [From Reglan] AdvReac Hallucinati Verified 07/30/20 12:45 ons Review of Systems ROS Statement: Those systems with pertinent positive or pertinent negative responses have been documented in the HPI. ROS Other: All systems not noted in ROS Statement are negative. Constitutional: Denies: fever Eyes: Denies: eye pain ENT: Denies: ear pain Respiratory: Denies: cough Cardiovascular: Denies: chest pain Endocrine: Denies: fatigue Gastrointestinal: Denies: abdominal pain Genitourinary: Denies: urgency Musculoskeletal: Denies: back pain Skin: Denies: rash Neurological: Reports: weakness, paresthesias. Denies: headache Psychiatric: Denies: depression Past Medical History Past Medical History: Thyroid Disorder Additional Past Medical History / Comment(s): chronic neck/back pain History of Any Multi-Drug Resistant Organisms: None Reported Past Surgical History: Appendectomy, Hysterectomy Additional Past Surgical History / Comment(s): malrotation surgery 2011 Past Psychological History: PTSD Smoking Status: Never smoker Past Alcohol Use History: Occasional Past Drug Use History: None Reported General Exam Limitations: no limitations General appearance: alert, in no apparent distress Head exam: Present: normocephalic Eye exam: Present: normal appearance, PERRL, EOMI ENT exam: Present: normal oropharynx Neck exam: Present: normal inspection. Absent: tenderness Respiratory exam: Present: normal lung sounds bilaterally Cardiovascular Exam: Present: regular rate, normal rhythm Expanded Peripheral pulses: 2+: Radial (R) GI/Abdominal exam: Present: soft. Absent: tenderness Extremities exam: Present: normal inspection Back exam: Present: tenderness (Mild tenderness right trapezius which patient states is chronic) Neurological exam: Present: alert, oriented X3, CN II-XII intact Expanded Neurological exam: Present: protecting the airway Speech: Present: fluid speech Cranial nerves: EOM's Intact: Normal, Facial Sensation: Normal Sensory exam: Upper Extremity Light Touch: Abnormal Right, Lower Extremity Light Touch: Normal Motor strength exam: RUE: 2/1 (Patient has difficulty lifting the right arm off the bed. Arm does fall to the bed), LUE: 5, RLE: 5, LLE: 5 Eye Response: (4) open spontaneously Motor Response: (6) obeys commands Verbal Response: (5) oriented Psychiatric exam: Present: normal affect, normal mood Skin exam: Present: normal color Course Vital Signs 07/30/20 11:38 Temperature 97.7 F Pulse Rate 74 Respiratory 18 Rate Blood Pressure 197/134 O2 Sat by Pulse 98 Oximetry - Reevaluation(s) Reevaluation #1: 07/30/20 12:23 Case was discussed with Dr. Carroll who will review films and evaluate patient. 07/30/20 12:46 Case was again discussed with Dr. Craroll who did not want patient to be a TPA candidate. He did have some concerns regarding diagnosis. He would like patient admitted with neurology consult and MRI. Patient is not considered a TPA candidate secondary to unclear diagnosis. In addition there is low NIH score. In addition patient is improving upon reevaluation. Patient was reevaluated and updated. Patient does have increasing strength on the right side. EKG Findings - EKG Comments: EKG Findings:: Sinus bradycardia with rate of 54. MD 136. QRS 82. QT 4:30. QTC 47. Normal axis. Normal QRS. No acute ST change. Medical Decision Making - Lab Data Result diagrams: 07/30/20 12:06 07/30/20 12:06 Lab Results 07/30/20 07/30/20 Range/Units 12:06 12:06 WBC 5.3 (3.8-10.6) k/uL RBC 4.51 (3.80-5.40) m/uL Hgb 14.6 (11.4-16.0) gm/dL Hct 42.5 (34.0-46.0) % MCV 94.3 (80.0-100.0) fL MCH 32.3 (25.0-35.0) pg MCHC 34.3 (31.0-37.0) g/dL RDW 12.5 (11.5-15.5) % Plt Count 286 (150-450) k/uL MPV 8.5 Neutrophils % 61 % Lymphocytes % 27 % Monocytes % 6 % Eosinophils % 3 % Basophils % 1 % Neutrophils # 3.2 (1.3-7.7) k/uL Lymphocytes # 1.4 (1.0-4.8) k/uL Monocytes # 0.3 (0-1.0) k/uL Eosinophils # 0.2 (0-0.7) k/uL Basophils # 0.1 (0-0.2) k/uL Sodium 136 L (137-145) mmol/L Potassium 5.2 H (3.5-5.1) mmol/L Chloride 105 (98-107) mmol/L Carbon Dioxide 22 (22-30) mmol/L Anion Gap 9 mmol/L BUN 16 (7-17) mg/dL Creatinine 0.94 (0.52-1.04) mg/dL Est GFR (CKD-EPI)AfAm 87 (>60 ml/min/1.73 sqM) Est GFR (CKD-EPI)NonAf 76 (>60 ml/min/1.73 sqM) Glucose 85 (74-99) mg/dL Calcium 9.4 (8.4-10.2) mg/dL Total Bilirubin 0.8 (0.2-1.3) mg/dL AST 34 (14-36) U/L ALT 21 (4-34) U/L Alkaline Phosphatase 67 (38-126) U/L Total Protein 7.9 (6.3-8.2) g/dL Albumin 4.8 (3.5-5.0) g/dL - Radiology Data Radiology results: report reviewed (Computed tomography scan the brain is an unremarkable study.), image reviewed (Chest x-ray shows no acute process) Disposition Clinical Impression: Right arm weakness Disposition: ADMITTED IP TO THIS HOSP Is patient prescribed a controlled substance at d/c from ED?: No Referrals: Moreno Mcwilliams MD [Primary Care Provider] - 1-2 days Decision Time: 12:47
[2020-07-30 12:15] LABS: Basophils # (A) 0.1 k/uL (0-0.2); Basophils % (A) 1 %; Eosinophils # (A) 0.2 k/uL (0-0.7); Eosinophils % (A) 3 %; HCT 42.5 % (34.0-46.0); HGB 14.6 gm/dL (11.4-16.0); Lymphocytes # (A) 1.4 k/uL (1.0-4.8); Lymphocytes % (A) 27 %; MCH 32.3 pg (25.0-35.0); MCHC 34.3 g/dL (31.0-37.0); MCV 94.3 fL (80.0-100.0); Mean Platelet Volume 8.5; Monocytes # (A) 0.3 k/uL (0-1.0); Monocytes % (A) 6 %; Neutrophils # (A) 3.2 k/uL (1.3-7.7); Neutrophils % (A) 61 %; Platelet Count 286 k/uL (150-450); RBC 4.51 m/uL (3.80-5.40); RDW 12.5 % (11.5-15.5); WBC 5.3 k/uL (3.8-10.6)
--- NOTE | 2020-07-30 12:25 | XR ---
EXAMINATION TYPE: XR chest 2V DATE OF EXAM: 07/30/2020 COMPARISON: 03/29/2018 HISTORY: Altered mental status, right arm numbness and tingling TECHNIQUE: Frontal and lateral views of the chest are obtained. FINDINGS: There is no focal air space opacity, pleural effusion, or pneumothorax seen. The cardiac silhouette size is within normal limits. The osseous structures are intact. IMPRESSION: No acute cardiopulmonary process.
--- NOTE | 2020-07-30 12:26 | CT ---
EXAMINATION TYPE: CT brain wo con for TPA DATE OF EXAM: 07/30/2020 COMPARISON: None. HISTORY: Neuro deficit, acute stroke suspected. CODE STROKE CT DLP: 1102.8 mGycm. Automated Exposure Control for Dose Reduction was Utilized. TECHNIQUE: CT scan of the head is performed without contrast. FINDINGS: There is no acute intracranial hemorrhage, mass effect, or midline shift identified. The ventricles and sulci are within normal limits in size. [place]-white matter differentiation is maintain ed. The globes are intact and the visualized sinuses are clear. IMPRESSION: Unremarkable study.
[2020-07-30 12:27] LABS: Albumin 4.8 g/dL (3.5-5.0); Calcium 9.4 mg/dL (8.4-10.2); Total Bilirubin 0.8 mg/dL (0.2-1.3); Total Protein 7.9 g/dL (6.3-8.2)
[2020-07-30 12:31] LABS: INR 0.9 (<1.2); Partial Thromboplastin Time 22.3 sec (22.0-30.0); Prothrombin Time 9.6 sec (9.0-12.0)
[2020-07-30 12:41] LABS: Potassium 5.2 mmol/L (3.5-5.1)
[2020-07-30] MEDS ORDERED: ASPIRIN 325 MG TAB PO STA (12:47)
[2020-07-30] MEDS: SODIUM CHLORIDE 0.9% 1,000 ML IV SCH ×2 (13:08→23:01)
--- NOTE | 2020-07-30 13:36 | CT ---
EXAMINATION TYPE: CT angio head neck DATE OF EXAM: 07/30/2020 HISTORY: Neuro deficit, acute stroke suspected COMPARISON: None. CT DLP: 548.2 mGycm. Automated Exposure Control for Dose Reduction was Utilized. TECHNIQUE: CTA scan of the head and neck are performed without and with IV Contrast, patient injecte d with 65 ml mL of Isovue 370, axial images are obtained, coronal and sagittal reformatted images are reviewed. Three-D reconstructed images are created on an independent workstation and reviewed. FINDINGS: Carotid/Vascular Structures: Normal three-vessel origin from aortic arch. No significant plaque or st enosis in the 3 great vessels. Normal origin right common carotid artery from right brachiocephalic a rtery. No significant plaque or stenosis in the common or internal carotid arteries bilaterally inclu ding a level of carotid bulbs. Patent external carotid arteries bilaterally without significant steno sis. Codominant vertebrobasilar system. Vertebral arteries patent to basilar junction. No significant sten osis or aneurysm in posterior circulation. Patent posterior communicating arteries. Patent anterior c ommunicating artery. No significant focal stenosis or aneurysm in the anterior circulation. Other: Heterogeneous thyroid with scattered subcentimeter hypodense and hyperdense nodules. IMPRESSION: No significant abnormality is seen.
[2020-07-30] MEDS ORDERED: SODIUM POLYSTYRENE SULFONATE 15 GM/60 ML BOTTLE PO STA (15:22)
--- NOTE | 2020-07-30 15:28 | P.HPIM ---
History of Present Illness H&P Date: 07/30/20 Chief Complaint: Right-sided weakness and numbness This is a 39-year-old female with past medical history significant for hypothyroidism that presented to the emergency room with right-sided weakness and numbness. Patient said that her symptoms started this morning while she was at work with numbness involving her right arm and subsequently her right arm became very weak and she was unable to move it. Patient reports that initially she thought that he may be attributed to her chronic neck arthritis but then called her chiropractor to be evaluated. She went to her chiropractor and was noted to have a systolic blood pressure greater than 190 and then was sent to the emergency room. Patient was seen and evaluated by the ER physician with consultation to telemetry and neurology. She was not a candidate for TPA. Her symptoms resolved soon after arrival to the ER. I was asked to admit her to the hospital for further management. She was seen by me in the emergency room. She did not have any residual symptoms at the time of my evaluation. Computed tomography scan of the head and CT angiogram of the head and neck with no acute findings. Patient will be admitted for neurology evaluation. Review of Systems Review of system: 14 points review of systems were obtained and were negative except to what were mentioned in the HPI. Past Medical History Past Medical History: Thyroid Disorder Additional Past Medical History / Comment(s): Cervical pain/degenerative disc changes, chronic back pain, hashimotos History of Any Multi-Drug Resistant Organisms: MRSA Date of last positivie culture/infection: 2007 MDRO Source:: R lower leg Past Surgical History: Appendectomy, Hysterectomy Additional Past Surgical History / Comment(s): Abdominal laparoscopies, malrotation surgery 2010, 4 bilateral knee surgeries/ACL repairs and meniscus surgery Past Anesthesia/Blood Transfusion Reactions: No Reported Reaction Smoking Status: Never smoker - Past Family History Mother Family Medical History: Thyroid Disorder Additional Family Medical History / Comment(s): Rogers's Father Family Medical History: Hypertension Additional Family Medical History / Comment(s): DDD Medications and Allergies Home Medications Medication Instructions Recorded Confirmed Type Levothyroxine Sodium [Synthroid] 50 mcg PO DAILY 12/12/19 07/30/20 History Modafinil [Provigil] 100 - 200 mg PO DAILY 12/12/19 07/30/20 History Cetirizine HCl 10 mg PO DAILY PRN 07/30/20 07/30/20 History Ibuprofen [Motrin] 800 mg PO Q8H PRN 07/30/20 07/30/20 History methocarbamoL [Methocarbamol] 750 mg PO TID PRN 07/30/20 07/30/20 History Allergies Allergy/AdvReac Type Severity Reaction Status Date / Time metoclopramide [From Reglan] AdvReac Hallucinati Verified 07/30/20 12:45 ons Physical Exam Vitals: Vital Signs Temp Pulse Resp BP Pulse Ox 07/30/20 14:59 58 L 20 126/96 95 07/30/20 14:07 68 20 131/85 98 07/30/20 13:40 72 20 131/97 100 07/30/20 12:30 77 20 134/102 100 07/30/20 12:15 75 20 145/107 100 07/30/20 12:00 74 20 161/115 100 07/30/20 11:38 97.7 F 74 18 197/134 98 Intake and Output 07/30/20 07/30/20 07/30/20 06:59 14:59 22:59 Other: Weight 79.379 kg General: The patient is awake and alert, in no distress Eye: there is normal conjunctiva bilaterally. Neck: The neck is supple, there is no JVD. Cardiovascular: Normal S1-S2, no S3-S4, no murmurs. Respiratory: Lungs clear to auscultation bilaterally Gastrointestinal: Abdomen is soft, nontender Musculoskeletal: There is no pedal edema. Neurological:. Speech is normal. Skin: Skin is warm and dry Results CBC & Chem 7: 07/30/20 12:06 07/30/20 12:06 Labs: Abnormal Lab Results - Last 24 Hours (Table) 07/30/20 Range/Units 12:06 Sodium 136 L (137-145) mmol/L Potassium 5.2 H (3.5-5.1) mmol/L Thrombosis Risk Factor Assmnt - Choose All That Apply Each Factor Represents 1 point: Age 41-60 years Other Risk Factors: No Other congenital or acquired thrombophilia - If yes, enter type in comment: No Thrombosis Risk Factor Assessment Total Risk Factor Score: 1 Thrombosis Risk Factor Assessment Level: Low Risk Assessment and Plan Assessment: 1. Suspected TIA versus CVA, computed tomography scan of the brain and CT angiogram of the head and neck with no acute findings. Neurology consulted. MRI ordered. Continue neuro checks. Echocardiogram. Continue full dose aspirin daily. Start Lipitor 40 mg daily. PT/OT/speech pathology evaluation. 2. Hypertensive urgency, blood pressure returned to normal range. We will continue to monitor off of any treatment. Check urine toxicology screen 3. Hypothyroidism on levothyroxine. Check thyroid function test 5. DVT prophylaxis with subcu heparin
[2020-07-30] MEDS: ATORVASTATIN 40 MG TAB PO SCH (16:02)
[2020-07-30 18:16] VITALS: RESP 16
--- NOTE | 2020-07-30 19:00 | MR ---
EXAMINATION TYPE: MR brain/cspine wo DATE OF EXAM: 07/30/2020 COMPARISON: 07/30/2020 CT brain HISTORY: Loss of feeling in RT arm today. CONTRAST: Performed utilizing 0 mL intravenous Gadavist gadolinium contrast. TECHNIQUE: Multiplanar, multiecho imaging on a 3.0 Soledad magnet is performed through the brain. Stud y is performed within 24 hours of arrival to the hospital. The craniovertebral junction is normal. The pituitary is normal. Diffusion-weighted imaging is performed. No abnormal hyperintensity is present to suggest an acute i ntracranial infarct or acute ischemic change. Signal within the brain is normal. No suspicious hyperintensities are evident. Ventricles and sulci are appropriate for the patient age. IMPRESSIONS: 1. Normal noncontrast MRI brain EXAMINATION TYPE: MR brain/cspine wo DATE OF EXAM: 07/30/2020 COMPARISON: None HISTORY: Loss of feeling in RT arm today. CONTRAST: Performed utilizing 0 mL intravenous Gadavist gadolinium contrast. TECHNIQUE: Multiplanar multiecho imaging on a 3.0 Soledad magnet is performed through the cervical spin e. FINDINGS: The craniovertebral junction is normal. Vertebral body alignment is normal. C7-T1: No focal disc herniation or significant disc bulge is evident. No spinal canal stenosis or n eural foraminal stenosis is present. C6-7: Broad-based disc bulge is mild anterior thecal sac compression. No cord contact is evident. No spinal canal stenosis is present. There is moderate left foraminal stenosis. C5-6: There is loss of disc height is level. Residual disc bulge has contact with the anterior thecal sac. No AP spinal canal stenosis is present. Neural foramen are patent. C4-5: No focal disc herniation or significant disc bulge is evident. No spinal canal stenosis or daljit ral foraminal stenosis is present. C3-4: No focal disc herniation or significant disc bulge is evident. No spinal canal stenosis or daljit ral foraminal stenosis is present. C2-3: No focal disc herniation or significant disc bulge is evident. No spinal canal stenosis or daljit ral foraminal stenosis is present. IMPRESSIONS: 1. Degenerative disc changes C4-5 and C5-6. 2. Residual disc bulging and anterior thecal sac flattening at C5-6. 3. Disc bulging with moderate anterior thecal sac compression C6-7. No AP spinal canal stenosis prese nt.. 4. Moderate left foraminal stenosis C6-7
[2020-07-30] MEDS: HEPARIN SODIUM,PORCINE/PF 5,000 UNIT/0.5 ML SYRINGE SQ SCH (19:46)
[2020-07-30] MEDS ORDERED: CLOPIDOGREL 75 MG TAB PO STA (21:06)
--- NOTE | 2020-07-30 21:31 | P.CNNES ---
History of Present Illness Consult date: 07/30/20 Requesting physician: Eduardo Acosta Reason for Consult: Right arm weakness History of Present Illness: Patient is a 39-year-old female came to the hospital today at 11:37 AM for right arm weakness and numbness. Patient states that she was at work at around 10 to 10:30 AM when she developed tingling numbness in the right shoulder, that extended to the right arm and the hand. She also noticed weakness of the right arm, as she could not lift her right arm. She has to use her left arm to lift her right arm. She was feeling some neck pain, therefore she went to the chiropractor, who notices blood pressure was 158/123. She was recommended to go to the hospital. Patient states that besides right arm, she also had some numbness on the right side of her trunk, but not involving the face or the leg. She does have chronic intermittent issues with the right lower back and right thigh, which was bothering her again today, but is not unusual for her. Patient arrived to the ER. Her symptoms were still present in the ER, but slowly her symptoms resolved in about 1-1/2-2 hours. Vital signs on arrival blood pressure 197/134, pulse is 74 and temperature 97.7. Patient's blood pressure did improve subsequently to 140/100. Computed tomography scan of head showed no acute process. Chest x-ray normal. EKG sinus bradycardia with sinus arrhythmia. Otherwise normal EKG CTA of head and neck showed no significant abnormality. No stenosis or aneurysm. MRI of the brain without contrast shows normal MRI. MRI of the cervical spine showed degenerative disc changes C4 5 and C5 6. Residual disc bulging and anterior thecal sac flattening at C5 6. Disc bulging with moderate anterior thecal sac compression C6 7. No AP spinal canal stenosis present. Moderate left foraminal stenosis C6 7. Blood test shows normal CBC, PT/PTT, sodium 136 potassium 5.2, normal renal and hepatic panel troponin negative. Bansal virus PCR negative. Patient takes Provigil 200 mg, levothyroxine, ibuprofen, Zyrtec 10 mg and Robax in. Patient does not take any antiplatelet medication. Patient denies any history of hypertension or diabetes. She smoked socially, light smoker off and on since age 14, quit 3-1/2 years ago. Patient has history of thyroid issues. Patient states that in January 2020 she had somewhat similar feeling involving both hands. She [place] the airport. Patient states that she was feeling heaviness in both upper limbs and was having difficulty speaking. She was speaking "super slow". Patient was almost planning to go to the ER, but symptoms resolved again in an hour, theref ore she did not seek medical attention. Denies any family history of strokes or TIA. She had hysterectomy in 2015, not on any control pills. Patient states her symptoms have since resolved in the ER. Just in the last 10- 15 minutes, she is noticing similar tingling involving the right arm. It has not developed into weakness yet. Review of Systems As above in detail. All other review of systems completely unremarkable. Denies any chest pain shortness of breath wheezing or cough. Denies any diplopia nausea vomiting diarrhea. Past Medical History Past Medical History: Thyroid Disorder Additional Past Medical History / Comment(s): Cervical pain/degenerative disc changes, chronic back pain, hashimotos History of Any Multi-Drug Resistant Organisms: MRSA Date of last positivie culture/infection: 2007 MDRO Source:: R lower leg Past Surgical History: Appendectomy, Hysterectomy Additional Past Surgical History / Comment(s): Abdominal laparoscopies, malrotation surgery 2010, 4 bilateral knee surgeries/ACL repairs and meniscus surgery Past Anesthesia/Blood Transfusion Reactions: No Reported Reaction Smoking Status: Never smoker - Past Family History Mother Family Medical History: Thyroid Disorder Additional Family Medical History / Comment(s): Rogers's Father Family Medical History: Hypertension Additional Family Medical History / Comment(s): DDD Medications and Allergies Home Medications Medication Instructions Recorded Confirmed Type Levothyroxine Sodium [Synthroid] 50 mcg PO DAILY 12/12/19 07/30/20 History Modafinil [Provigil] 100 - 200 mg PO DAILY 12/12/19 07/30/20 History Cetirizine HCl 10 mg PO DAILY PRN 07/30/20 07/30/20 History Ibuprofen [Motrin] 800 mg PO Q8H PRN 07/30/20 07/30/20 History methocarbamoL [Methocarbamol] 750 mg PO TID PRN 07/30/20 07/30/20 History Allergies Allergy/AdvReac Type Severity Reaction Status Date / Time metoclopramide [From Reglan] AdvReac Hallucinati Verified 07/30/20 12:45 ons Physical Examination - Vital Signs Vital Signs: Vital Signs Temp Pulse Pulse Resp BP BP Pulse Ox 07/30/20 18:15 96.2 F L 54 L 16 149/97 100 07/30/20 17:35 70 20 140/100 98 07/30/20 16:00 67 20 138/98 97 07/30/20 14:59 58 L 20 126/96 95 07/30/20 14:07 68 20 131/85 98 07/30/20 13:40 72 20 131/97 100 07/30/20 12:30 77 20 134/102 100 07/30/20 12:15 75 20 145/107 100 07/30/20 12:00 74 20 161/115 100 07/30/20 11:38 97.7 F 74 18 197/134 98 Intake and Output 07/30/20 07/30/20 07/30/20 06:59 14:59 22:59 Intake Total 240 Balance 240 Intake: Oral 240 Other: Weight 79.379 kg Patient is a young female, very pleasant, in no acute distress. Patient is alert awake oriented to time place and person. Speech and language functions are normal. Attention, concentration and fund of knowledge is adequ ate. Patient can name and repeat very well. Comprehension fully intact. On cranial examination, pupils are equal, round and reacting to light, visual raygoza are full on confrontation, with no neglect on double simultaneous stimulation. Her extraocular muscles are intact with no nystagmus. Face is symmetric, tongue protrudes to the midline. Palatal elevation and sensation normal, hearing and shoulder shrug normal, facial sensation normal. On muscle strength testing, there is no pronator drift and the strength is normal in arms and legs distally and proximally. Deep tendon reflexes are symmetric, 1+ in the upper limbs, 2 at the knees 1 ankles and plantars downgoing bilaterally. Sensory to touch is equal with no neglect. Patient was feeling slight increased cold sensation in the left hand as compared to the right. Her left hand was somewhat more warmer to touch as well. Cerebellar function showed no ataxia for [id number] testing. No dysdiadochokinesia. Tone and bulk of muscles normal. Gait normal. On general examination, there is no carotid bruit or murmur, S1-S2 audible. Abdomen is soft nontender. Chest is clear. Peripheral pulses are present. No edema. Results - Laboratory Findings CBC and BMP: 07/30/20 12:06 07/30/20 12:06 Abnormal Lab Findings: Abnormal Labs 07/30/20 12:06 Sodium 136 L Potassium 5.2 H Assessment and Plan Assessment: * Possible TIA manifesting with transient right arm weakness, numbness, that resolved in 1-1/2-2 hours. Just in the last 20 minutes she is noticing recurrence of numbness of the right arm. No weakness yet. Her current NIH stroke scale is 0. * High blood pressure readings, likely newly diagnosed hypertension. * Hypothyroidism * Cervical spondylosis, without spinal stenosis. Plan: * Patient had undergone MRI of the brain, which revealed no acute process. No demyelinating disease, no acute stroke. Patient probably had a TIA. Her sy mptoms have resolved in the ER. She is noticing slight recurrence of tingling in the right hand in the last 15-20 minutes. Patient already has received aspirin 325 mg in the ER. We will load her with Plavix 300 mg. * 2-D echo with bubble study to rule out PFO. * CTA of head and neck showed no stenosis, occlusion or aneurysm. * Fasting a.m. lipid panel and hemoglobin A1c. * May consider hypercoagulable workup. * Continue telemetry monitoring. * Permissive hypertension for next 24 hours. * Close neuro checks every 1 hour for next 4 hours and then every 2 hours. * Neurology will follow.
[2020-07-30] MEDS: FAMOTIDINE 20 MG TAB PO SCH (22:59)
[2020-07-31 01:15] LABS: Urine Alcohol Negative (Negative); Urine Barbiturate Negative (Negative); Urine Cocaine Negative (Negative); Urine Methadone Negative (Negative); Urine Opiates Negative (Negative); Urine Phencyclidine Negative (Negative)
[2020-07-31 07:43] LABS: Calcium 8.7 mg/dL (8.4-10.2); Potassium 4.4 mmol/L (3.5-5.1)
[2020-07-31] MEDS: SODIUM CHLORIDE 0.9% 1,000 ML IV SCH (07:56)
[2020-07-31] MEDS: HEPARIN SODIUM,PORCINE/PF 5,000 UNIT/0.5 ML SYRINGE SQ SCH (07:56)
[2020-07-31] MEDS: ATORVASTATIN 40 MG TAB PO SCH (07:56)
[2020-07-31] MEDS: FAMOTIDINE 20 MG TAB PO SCH (07:56)
[2020-07-31 10:00] LABS: T4, Free (Free Thyroxine) 0.82 ng/dL (0.78-2.19)
--- NOTE | 2020-07-31 11:11 | ECHOF ---
Referral Reason:stroke MEASUREMENTS -------- HEIGHT: 175.3 cm WEIGHT: 79.4 kg BP: 126/96 RVIDd: 2.6 cm (< 3.3) IVSd: 1.4 cm (0.6 - 1.1) LVIDd: 4.2 cm (3.9 - 5.3) LVPWd: 1.5 cm (0.6 - 1.1) IVSs: 1.8 cm LVIDs: 2.5 cm LVPWs: 1.8 cm LAESV Index (A-L): 18.01 ml/m Ao Diam: 2.8 cm (2.0 - 3.7) AV Cusp: 2.3 cm (1.5 - 2.6) LA Diam: 3.3 cm (2.7 - 3.8) MV EXCURSION: 23.991 mm (> 18.000) MV EF SLOPE: 99 mm/s (70 - 150) EPSS: 0.2 cm MV E Leif: 0.83 m/s MV DecT: 206 ms MV A Leif: 0.41 m/s MV E/A Ratio: 2.00 RAP: 5.00 mmHg RVSP: 18.23 mmHg FINDINGS -------- Sinus rhythm. This was a technically adequate study. The left ventricular size is normal. There is moderate concentric left ventricular hypertrophy. O verall left ventricular systolic function is normal with, an EF between 55 - 60 %. The diastolic fi lling pattern is normal for the age of the patient 7.62. The right ventricle is normal in size. Normal LA size by volume 22+/-6 ml/m2. The right atrial size is normal. Interatrial and interventricular septum intact. The aortic valve is trileaflet, and appears structurally normal. No aortic stenosis or regurgitation. The mitral valve is normal. There is trace to mild mitral regurgitation. The tricuspid valve appears structurally normal. Mild tricuspid regurgitation present. Right vent ricular systolic pressure is normal at < 35 mmHg. The right ventricular systolic pressure, as measu red by Doppler, is 18.23mmHg. There is no pulmonic regurgitation present. The aortic root size is normal. Normal inferior vena cava with normal inspiratory collapse consistent with estimated right atrial pre ssure of 5 mmHg. There is no pericardial effusion. CONCLUSIONS -------- 1. There is moderate concentric left ventricular hypertrophy. 2. Overall left ventricular systolic function is normal with, an EF between 55 - 60 %. 3. Normal LA size by volume 22+/-6 ml/m2. 4. The aortic valve is trileaflet, and appears structurally normal. No aortic stenosis or regurgitati on. 5. There is trace to mild mitral regurgitation. 6. Mild tricuspid regurgitation present. [employer] SUPERINTENDENT: Farzana Rudd RDCS
[2020-07-31] MEDS ORDERED: ASPIRIN 81 MG PO SCH (11:15)
[2020-07-31] MEDS ORDERED: CLOPIDOGREL 75 MG TAB PO SCH (11:15)
--- NOTE | 2020-07-31 12:14 | ECHOF ---
Referral Reason:r/o shunt MEASUREMENTS -------- HEIGHT: 175.3 cm WEIGHT: 81.6 kg BP: FINDINGS -------- Bubble study was performed with 2 iv injections of 8 ccs of agitated normal saline, at rest, and with cough. No shunt seen. Septum is intact. CONCLUSIONS -------- 1. Bubble study was performed with 2 iv injections of 8 ccs of agitated normal saline, at rest, and w ith cough. No shunt seen. Septum is intact. [employer]: Valerie Pretty RDCS
[2020-07-31 12:25] VITALS: BP 135/58; PULSE 51; TEMP 96.5
--- NOTE | 2020-07-31 13:45 | P.DS ---
Providers Date of admission: 07/31/20 08:35 Expected date of discharge: 07/31/20 Attending physician: Juana Buckley DO Consults: 07/30/20 12:48 Consult Physician Urgent Consulting Provider: Varun Daugherty Consult Reason/Comments: Right arm weakness Do you want consulting provider notified?: Yes Primary care physician: Moreno Bhandari [facility] Course: This is a 39-year-old female with past medical history noted below that presented to the emergency room with right-sided weakness and numbness mostly involving her right arm. Patient was evaluated in the ER and admitted to the hospital for further management of her medical problems noted below. 1. Suspected TIA: computed tomography scan of the brain and CT angiogram of the head and neck with no acute findings. Neurology consulted. MRI of the brain showed no acute findings. MRI of the cervical spine showed diffuse DJD with multilevel disc bulging without compression. Echocardiogram showed preserved ejection fraction with no intracardiac shunt. Given her presentation neurology has high suspicion for a possible TIA. She will be started on Plavix and aspirin for 3 weeks then discontinue Plavix and continue aspirin indefinitely. She will also be started on Lipitor. Fasting lipid profile pending and will follow-up with her PCP in that regard. 2. Hypertensive urgency, blood pressure returned to normal range with some high readings. Patient will be started on lisinopril 10 mg daily. She was advised to monitor her blood pressure closely at home and follow up with her PCP. 3. Hypothyroidism on levothyroxine. TSH was slightly elevated. Her home dose of levothyroxine will be increased to 75 mcg daily. Follow-up with PCP for repeat lab work in the next 4-6 weeks Patient was advised to discontinue ibuprofen as that may be contributing to her increased blood pressure. She'll be discharged home in a stable condition. Plan - Discharge Summary Discharge Rx Participant: No New Discharge Prescriptions: New Levothyroxine Sodium [Synthroid] 75 mcg PO DAILY #30 tab Lisinopril [Zestril] 10 mg PO DAILY #30 tab Aspirin 81 mg PO DAILY #30 chew Clopidogrel [Plavix] 75 mg PO DAILY #20 tab Continue Modafinil [Provigil] 100 - 200 mg PO DAILY Cetirizine HCl 10 mg PO DAILY PRN PRN Reason: Allergy Symptoms methocarbamoL [Methocarbamol] 750 mg PO TID PRN PRN Reason: Muscle Pain Discontinued Levothyroxine Sodium [Synthroid] 50 mcg PO DAILY Ibuprofen [Motrin] 800 mg PO Q8H PRN PRN Reason: Pain Or Fever > 100.5 Discharge Medication List Modafinil [Provigil] 100 - 200 mg PO DAILY 12/12/19 [History] Cetirizine HCl 10 mg PO DAILY PRN 07/30/20 [History] methocarbamoL [Methocarbamol] 750 mg PO TID PRN 07/30/20 [History] Aspirin 81 mg PO DAILY #30 chew 07/31/20 [Rx] Clopidogrel [Plavix] 75 mg PO DAILY #20 tab 07/31/20 [Rx] Levothyroxine Sodium [Synthroid] 75 mcg PO DAILY #30 tab 07/31/20 [Rx] Lisinopril [Zestril] 10 mg PO DAILY #30 tab 07/31/20 [Rx] Follow up Appointment(s)/Referral(s): Moreno Mcwilliams MD [Primary Care Provider] - 1-2 days Discharge Disposition: HOME SELF-CARE
[2020-07-31 13:57] LABS: Hemoglobin A1C 4.4 % (4.0-6.0)
--- NOTE | 2020-07-31 16:20 | P.PN ---
Subjective Progress Note Date: 07/31/20 Patient states she is feeling better. No new symptoms. Complains of some very mild burning sensation in the right arm upon touching. No weakness. Objective - Vital Signs Vital signs: Vital Signs Temp 96.5 F L 07/31/20 12:24 Pulse 51 L 07/31/20 12:24 Resp 16 07/31/20 12:24 BP 135/58 07/31/20 12:24 Pulse Ox 99 07/31/20 12:24 Intake & Output 07/30/20 07/31/20 07/31/20 18:59 06:59 18:59 Intake Total 240 960 Balance 240 960 Weight 79.379 kg 82 kg Intake: Oral 240 960 Other: Voiding Method Toilet # Voids 1 # Bowel Movements 0 - Exam Patient's mental status, speech and language functions are normal. Cranial nerves are normal. No droop. No pronator drift. No ataxia. Sensations normal. Gait normal. - Labs CBC & Chem 7: 07/30/20 12:06 07/31/20 06:19 Labs: Abnormal Lab Results - Last 24 Hours (Table) 07/31/20 07/31/20 Range/Units 06:19 06:19 Sodium 136 L (137-145) mmol/L TSH 15.200 H (0.465-4.680) mIU/L Assessment and Plan Assessment: * Possible TIA manifesting with transient right arm weakness, numbness, that resolved in 1-1/2-2 hours. Just in the last 20 minutes she is noticing re currence of numbness of the right arm. No weakness yet. Her current NIH stroke scale is 0. * High blood pressure readings, likely newly diagnosed hypertension. * Hypothyroidism * Cervical spondylosis, without spinal stenosis. Plan: * Patient had undergone MRI of the brain, which revealed no acute process. No demyelinating disease, no acute stroke. Patient probably had a TIA. Recommend dual antiplatelet medication with Plavix 75 mg and aspirin 81 mg daily for 3 weeks and then stop Plavix and continue aspirin 81 mg indefinitely. * 2-D echo with bubble study revealed moderate concentric LVH. EF is between 55-60%. Normal left atrial size. Bubble study negative for PFO. * CTA of head and neck showed no stenosis, occlusion or aneurysm. * Fasting a.m. lipid panel pending and hemoglobin A1c 4.4. Patient has been started on Lipitor 40 mg. * May consider hypercoagulable workup as outpatient. * Telemetry monitoring showing sinus rhythm with sinus bradycardia and 50s. No arrhythmia. * Blood pressure 135/78. Patient needs to follow-up with her primary physician closely, to monitor blood pressure. It stays up, would need antihypertensive medication. Target blood pressure <130/80. Patient started on lisinopril 10 mg daily. * Neurologically clear for discharge.
[2020-07-31 16:31] LABS: Chol/HDL Ratio 5.28; LDL Cholesterol,Calculated 115.4 mg/dL (0.0-131.0); VLDL Calculation 51.6 mg/dL (5.00-40.00)
[2020-08-01] MEDS ORDERED: ASPIRIN 325 MG TAB PO SCH (09:00)
== END 2020-07-31 14:35 | disposition home or self-care (01) | DRG 69 ==
LOC: EC 11:37 → 3SCARD 13:06 → OBSVTOIN 07-31 08:35
PROVIDERS: ADMIT Internal Medicine; ATTEND Internal Medicine
DX: G45.9 Transient cerebral ischemic attack, unspecified (principal); G81.91 Hemiplegia, unspecified affecting right dominant side; E06.3 Autoimmune thyroiditis; R20.0 Anesthesia of skin; M47.892 Other spondylosis, cervical region; I16.0 Hypertensive urgency; M47.812 Spondylosis without myelopathy or radiculopathy, cervical region; M51.26 Other intervertebral disc displacement, lumbar region; M50.20 Other cervical disc displacement, unspecified cervical region; Z20.822 Contact with and (suspected) exposure to COVID-19; E07.9 Disorder of thyroid, unspecified; R29.700 NIHSS score 0; R20.2 Paresthesia of skin; G89.29 Other chronic pain; M54.9 Dorsalgia, unspecified; Z90.710 Acquired absence of both cervix and uterus; Z79.82 Long term (current) use of aspirin; Z79.890 Hormone replacement therapy; Z86.73 Personal history of transient ischemic attack (TIA), and cerebral infarction without residual deficits
CPT/HCPCS: 36415; 70450; 70496; 70498; 70551; 71046; 72141; 80048; 80053; 80061; 80306; 83036; 84439; 84443; 84484; 85025; 85610; 85730; 87635; 93005; 93306; 93308; 99285

== ENCOUNTER → 2021-01-15 | Outpatient (CLI) | payer BC ==
--- NOTE | 2021-01-18 13:35 | MM ---
Reason for exam: screening (asymptomatic). History: Patient had first child at age 34. Benign excisional biopsy of the right breast. Physical Findings: A clinical breast exam by your physician is recommended on an annual basis and results should be correlated with mammographic findings. MG Screening Mammo w CAD Bilateral CC and MLO view(s) were taken. No prior studies available for comparison. The breast tissue is heterogeneously dense. This may lower the sensitivity of mammography. Previous mammotome biopsy in the right breast. ASSESSMENT: Benign, BI-RAD 2 RECOMMENDATION: Routine screening mammogram of both breasts in 1 year.
== END | disposition home or self-care (01) ==
LOC: RADMAMWWP 15:53
PROVIDERS: ATTEND Family Medicine
DX: Z12.31 Encounter for screening mammogram for malignant neoplasm of breast (principal)
CPT/HCPCS: 77067

== ENCOUNTER 2021-07-22 11:03 | Emergency (ER) | payer BC ==
[2021-07-22 11:12] VITALS: RESP 18; TEMP 97.9
[2021-07-22] MEDS ORDERED: MORPHINE SULFATE 2 MG/ML SYRINGE IVP STA (12:16)
[2021-07-22 12:31] LABS: Basophils # (A) 0.1 k/uL (0-0.2); Basophils % (A) 1 %; Eosinophils # (A) 0.1 k/uL (0-0.7); Eosinophils % (A) 2 %; HCT 38.9 % (34.0-46.0); HGB 12.9 gm/dL (11.4-16.0); Lymphocytes # (A) 1.2 k/uL (1.0-4.8); Lymphocytes % (A) 25 %; MCH 31.1 pg (25.0-35.0); MCHC 33.2 g/dL (31.0-37.0); MCV 93.8 fL (80.0-100.0); Monocytes # (A) 0.4 k/uL (0-1.0); Monocytes % (A) 7 %; Neutrophils % (A) 61 %; Platelet Count 265 k/uL (150-450); RBC 4.15 m/uL (3.80-5.40); RDW 12.8 % (11.5-15.5); WBC 4.9 k/uL (3.8-10.6)
[2021-07-22 12:43] LABS: Albumin 4.2 g/dL (3.5-5.0); Calcium 8.5 mg/dL (8.4-10.2); Potassium 4.5 mmol/L (3.5-5.1); Total Bilirubin 0.6 mg/dL (0.2-1.3); Total Protein 7.3 g/dL (6.3-8.2)
[2021-07-22 12:48] LABS: Appearance,Urine Cloudy (Clear); Bilirubin,Urine Negative (Negative); Blood,Urine Negative (Negative); Color,Urine Yellow; Glucose,Urine (UA) Negative (Negative); Ketones,Urine Negative (Negative); Leukocyte Esterase,Urine Negative (Negative); Mucus,Urine Rare /hpf; Nitrite,Urine Negative (Negative); Protein,Urine Trace (Negative); RBC,Urine 3 /hpf (0-5); Specific Gravity,Urine 1.025 (1.001-1.035); Squamous Epithelial Cell,Urine 5 /hpf (0-4); Urobilinogen,Urine <2.0 mg/dL (<2.0); WBC,Urine 1 /hpf (0-5)
--- NOTE | 2021-07-22 13:15 | CT ---
EXAMINATION TYPE: CT abdomen pelvis wo con DATE OF EXAM: 07/22/2021 COMPARISON: None available HISTORY: rectal pain, rectal cyst. Abdominal pain. CT DLP: 855.6 mGycm Automated exposure control for dose reduction was used. TECHNIQUE: Helical acquisition of images was performed from the lung bases through the pelvis. FINDINGS: LUNG BASES: 3 mm right medial basal faint pulmonary nodule, nonspecific. LIVER/GB: Enlarged liver measuring 19.9 cm. Questionable mild hepatic steatosis. Grossly unremarkable gallbladder. PANCREAS: No significant abnormality is seen. SPLEEN: No significant abnormality is seen. ADRENALS: Unremarkable. 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 FREE AIR: No free air is visualized RETROPERITONEAL ADENOPATHY: None visualized REPRODUCTIVE ORGANS: Previous hysterectomy. No gross adnexal mass. Slightly thickened vagina, underly ing inflammatory/infectious process can't be excluded, please correlate clinically. URINARY BLADDER: Nondistended. PELVIC ADENOPATHY: 13 mm right inguinal lymph node with other prominent bilateral inguinal lymph nod es, nonspecific. Please correlate clinically. OSSEOUS STRUCTURES: Sclerotic focus is seen within the right iliac bone without bone destruction, po ssibly representing a benign bone island. No aggressive bone lesion. BOWEL: Unremarkable nondistended stomach. The third part of the duodenum does not cross to the left side with most of the small bowel loops seen in the right side of the abdomen, while the colon is see n in the left side, suggestive uncomplicated bowel malrotation. No evidence of bowel obstruction. No gross colonic mass. OTHER: Minimal arterial atherosclerotic calcifications. Nonspecific fat stranding seen in the pelvis. Minimal pelvic fluid. No sizable ascites. IMPRESSION: Nonspecific fat stranding seen in the pelvis with minimal pelvic fluid and thickened vagina, underlyi ng inflammatory/infectious process at that location cannot be excluded, please correlate clinically. Bowel malrotation as described above. Other incidental findings as described above.
[2021-07-22] MEDS ORDERED: MORPHINE SULFATE 4 MG/ML SYRINGE IVP STA (13:50)
--- NOTE | 2021-07-22 15:33 | ED ---
Abdominal Pain HPI - General Chief Complaint: Abdominal Pain Stated Complaint: Pain Time Seen by Provider: 07/22/21 11:21 Source: patient, RN notes reviewed Mode of arrival: ambulatory Limitations: no limitations - History of Present Illness Initial Comments: Patient is a 40-year-old female presents to the emergency room with complaints of rectal pain. She reports that she has had rectal pain over the last few days with increase in pain. She does report that she had some blood around her stool a couple of days ago but none currently. She denies any mucus in her stool. She reports that she did have history of hemorrhoids with her last several years ago. She has past medical history significant for hypothyroidism. She has had a hysterectomy and a history of bowel malrotation surgery. She denies any fecal incontinence, bloody stools at this time, diarrhea, weight loss abdominal pain nausea or vomiting. She denies any other co mplaints or concerns at this time. - Related Data Home Medications Medication Instructions Recorded Confirmed Ibuprofen [Motrin Ib] 400 mg PO Q8H PRN 07/22/21 07/22/21 Levothyroxine Sodium [Synthroid] 88 mcg PO DAILY 07/22/21 07/22/21 Previous Rx's Medication Instructions Recorded Phenylephrine HCl/[place] Butter 1 supp RECTAL BID #12 suppositor 07/22/21 [Preparation H Suppository] Allergies Allergy/AdvReac Type Severity Reaction Status Date / Time metoclopramide [From Reglan] AdvReac Hallucinati Verified 07/22/21 14:53 ons Review of Systems ROS Statement: Those systems with pertinent positive or pertinent negative responses have been documented in the HPI. ROS Other: All systems not noted in ROS Statement are negative. Past Medical History Past Medical History: Thyroid Disorder Additional Past Medical History / Comment(s): Cervical pain/degenerative disc changes, chronic back pain, hashimotos History of Any Multi-Drug Resistant Organisms: MRSA Date of last positivie culture/infection: 2007 MDRO Source:: R lower leg Past Surgical History: Appendectomy, Hysterectomy Additional Past Surgical History / Comment(s): Abdominal laparoscopies, malrotation surgery 2010, 4 bilateral knee surgeries/ACL repairs and meniscus surgery Past Anesthesia/Blood Transfusion Reactions: No Reported Reaction Past Psychological History: PTSD Smoking Status: Never smoker - Past Family History Mother Family Medical History: Thyroid Disorder Additional Family Medical History / Comment(s): Rogers's Father Family Medical History: Hypertension Additional Family Medical History / Comment(s): DDD General Exam Limitations: no limitations Head exam: Present: atraumatic, normocephalic, normal inspection Eye exam: Present: normal appearance, PERRL, EOMI. Absent: scleral icterus, conjunctival injection, periorbital swelling ENT exam: Present: normal exam, mucous membranes moist Respiratory exam: Present: normal lung sounds bilaterally. Absent: respiratory distress, wheezes, rales, rhonchi, stridor Cardiovascular Exam: Present: regular rate, normal rhythm, normal heart sounds. Absent: systolic murmur, diastolic murmur, rubs, gallop, clicks GI/Abdominal exam: Present: soft, normal bowel sounds. Absent: distended, t enderness, guarding, rebound, rigid Rectal exam: Present: normal inspection, normal rectal tone, hemorrhoids, tenderness. Absent: bloody stool, fecal impaction Extremities exam: Present: normal inspection, full ROM, normal capillary refill. Absent: tenderness, pedal edema, joint swelling, calf tenderness Back exam: Present: normal inspection Neurological exam: Present: alert, oriented X3, CN II-XII intact Psychiatric exam: Present: normal affect, normal mood Skin exam: Present: warm, dry, intact, normal color. Absent: rash Course Vital Signs 07/22/21 11:06 Temperature 97.9 F Pulse Rate 72 Respiratory 18 Rate Blood Pressure 150/107 O2 Sat by Pulse 100 Oximetry Medical Decision Making - Lab Data Result diagrams: 07/22/21 12:23 07/22/21 12:23 Lab Results 07/22/21 07/22/21 07/22/21 Range/Units 12:23 12:23 12:23 WBC 4.9 (3.8-10.6) k/uL RBC 4.15 (3.80-5.40) m/uL Hgb 12.9 (11.4-16.0) gm/dL Hct 38.9 (34.0-46.0) % MCV 93.8 (80.0-100.0) fL MCH 31.1 (25.0-35.0) pg MCHC 33.2 (31.0-37.0) g/dL RDW 12.8 (11.5-15.5) % Plt Count 265 (150-450) k/uL MPV 8.0 Neutrophils % 61 % Lymphocytes % 25 % Monocytes % 7 % Eosinophils % 2 % Basophils % 1 % Neutrophils # 3.0 (1.3-7.7) k/uL Lymphocytes # 1.2 (1.0-4.8) k/uL Monocytes # 0.4 (0-1.0) k/uL Eosinophils # 0.1 (0-0.7) k/uL Basophils # 0.1 (0-0.2) k/uL Sodium 137 (137-145) mmol/L Potassium 4.5 (3.5-5.1) mmol/L Chloride 105 (98-107) mmol/L Carbon Dioxide 24 (22-30) mmol/L Anion Gap 8 mmol/L BUN 15 (7-17) mg/dL Creatinine 0.93 (0.52-1.04) mg/dL Est GFR (CKD-EPI)AfAm 88 (>60 ml/min/1.73 sqM) Est GFR (CKD-EPI)NonAf 77 (>60 ml/min/1.73 sqM) Glucose 89 (74-99) mg/dL Calcium 8.5 (8.4-10.2) mg/dL Total Bilirubin 0.6 (0.2-1.3) mg/dL AST 23 (14-36) U/L ALT 21 (4-34) U/L Alkaline Phosphatase 64 (38-126) U/L Total Protein 7.3 (6.3-8.2) g/dL Albumin 4.2 (3.5-5.0) g/dL Amylase 42 (30-110) U/L Lipase 100 (23-300) U/L Urine Color Yellow Urine Appearance Cloudy H (Clear) Urine pH 7.0 (5.0-8.0) Ur Specific [place] 1.025 (1.001-1.035) Urine Protein Trace H (Negative) Urine Glucose (UA) Negative (Negative) Urine Ketones Negative (Negative) Urine Blood Negative (Negative) Urine Nitrite Negative (Negative) Urine Bilirubin Negative (Negative) Urine Urobilinogen <2.0 (<2.0) mg/dL Ur Leukocyte Esterase Negative (Negative) Urine RBC 3 (0-5) /hpf Urine WBC 1 (0-5) /hpf Ur Squamous Epith Cells 5 H (0-4) /hpf Urine Mucus Rare H (None) /hpf - Radiology Data Radiology results: report reviewed, image reviewed Computed tomography scan of abdomen and pelvis showed nonspecific fat stranding seen in the pelvis with minimal pelvic fluid and vaginal thickening. Bowel malrotation no significant acute anomalies. No masses or obstruction. Disposition Clinical Impression: Hemorrhoids Disposition: HOME SELF-CARE Condition: Fair Instructions (If sedation given, give patient instructions): Hemorrhoids (ED) Additional Instructions: Please return to the Emergency Department if symptoms worsen or any other concerns. Prescriptions: Phenylephrine HCl/[place] Butter [Preparation H Suppository] 1 supp RECTAL BID #12 suppositor Is patient prescribed a controlled substance at d/c from ED?: No Referrals: Moreno Mcwilliams MD [Primary Care Provider] - 1-2 days Time of Disposition: 15:29
[2021-07-22 15:54] VITALS: BP 147/97; PULSE 64
== END 2021-07-22 15:54 | disposition home or self-care (01) ==
LOC: EC 11:03
DX: K64.9 Unspecified hemorrhoids (principal); E07.9 Disorder of thyroid, unspecified; Z79.890 Hormone replacement therapy; Z88.8 Allergy status to other drugs, medicaments and biological substances
CPT/HCPCS: 36415; 80053; 82150; 83690; 85025; 81001; 74176; 99284; 96374; 96375; J2270 ×2

== ENCOUNTER → 2022-09-10 | Outpatient (CLI) | payer BC ==
[2022-09-12 12:33] LABS: Alt. alternata IgE Class CLASS 0; Alternaria alternata IgE <0.10 kU/L (<0.10); Asperg. fumagatus IgE <0.10 kU/L (<0.10); Asperg. fumagatus IgE Class CLASS 0; Candida albicans IgE Class CLASS 0; Clad herbarum IgE <0.10 kU/L (<0.10); Clad herbarum IgE Class CLASS 0; Mucor racemosus IgE <0.10 kU/L (<0.10); Mucor racemosus IgE Class CLASS 0; Penicillium chrysogenum IgE <0.10 kU/L (<0.10); Penicillium chrysogenum IgE Cl CLASS 0
[2022-09-15 19:46] LABS: Corn IgG 15.1 mcg/mL (<2.0); Cow's Milk IgG 52.8 mcg/mL (<2.0); Peanut IgG 5.8 mcg/mL (<2.0); Potato IgG 5.3 mcg/mL (<2.0); Soybean IgG 4.9 mcg/mL (<2.0); Tomato IgG 7.3 mcg/mL (<2.0); Wheat IgG 12.5 mcg/mL (<2.0)
== END | disposition home or self-care (01) ==
LOC: LABWHC1 14:31
PROVIDERS: ATTEND Family Medicine
DX: R53.1 Weakness (principal); R10.84 Generalized abdominal pain; E63.9 Nutritional deficiency, unspecified
CPT/HCPCS: 36415; 83090; 86001; 86003; 86141; 86628; 87801

== ENCOUNTER → 2023-07-15 | Outpatient (CLI) | payer BC ==
--- NOTE | 2023-07-19 16:45 | US ---
EXAMINATION TYPE: US thyroid st tissue head/neck DATE OF EXAM: 07/15/2023 COMPARISON: CTA: 07/30/20 CLINICAL INDICATION: Female, 42 years old with history of E03.9 HYPOTHYROIDISM, UNSPECIFIED; Hypothyr oidism. Pt states she has been on medication for years. Pt states she has priors done at [facility] and has had biopsies done before that came back benign. GLAND SIZE: Right Lobe: 5.0 x 1.7 x 2.1 cm Overall Parenchyma: heterogeneous Left Lobe: 5.4 x 1.8 x 1.4 cm Overall Parenchyma: heterogeneous Isthmus Thickness: 0.4 cm NODULES RIGHT: # of nodules measured on right: 1 1. 0.9 X 0.7 x 1.1 cm, mid mid, solid or almost completely solid, hypoechoic nodule, which is wider than tall, with lobulated or irregular margins, without echogenic foci. TR 4. LEFT: # of nodules measured on left: 2 1. 1.0 X 0.9 x 0.7 cm, mid mid, solid or almost completely solid, hypoechoic nodule, which is wider than tall, with smooth margins, without echogenic foci. TR 4. 2. 1.4 X 1.8 x 0.9 cm, lower medial, solid or almost completely solid, hypoechoic nodule, which is wider than tall, with smooth margins, without echogenic foci. TR 4. ISTHMUS: # of nodules measured in the isthmus: 0 Bilateral neck scanned, no evidence of lymphadenopathy. Overall heterogeneous thyroid gland IMPRESSION: Diffusely heterogenous thyroid gland with bilateral TR 4 nodules. Follow-up ultrasound in one year is recommended to assess for stability.
== END | disposition home or self-care (01) ==
LOC: RADUSWWP 15:36
PROVIDERS: ATTEND Family Medicine
DX: E04.2 Nontoxic multinodular goiter (principal); E03.9 Hypothyroidism, unspecified
CPT/HCPCS: 76536

== ENCOUNTER 2023-09-18 20:17 | Emergency (ER) | payer BC, OTHER ==
[2023-09-18 20:23] VITALS: TEMP 98.6
--- NOTE | 2023-09-18 21:37 | ED ---
ENT HPI - General Chief complaint: ENT Stated complaint: [facility] Time Seen by Provider: 09/18/23 21:35 Source: patient, RN notes reviewed Mode of arrival: ambulatory Limitations: no limitations - History of Present Illness Initial comments: 42-year-old female with no significant past medical history presenting with sore throat since this morning. States she works at [employer] and states there was construction near her worksite. 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 Since then, patient states her throat has been burning and she is having some shortness of breath. States it feels as though there is a "lump" in her throat. She is able to swallow. Tolerating orals well. Denies fever or chills. Admits mild nasal congestion. Denies wheezing, no history of asthma. Denies chest pain - Related Data Home Medications Medication Instructions Recorded Confirmed Ibuprofen [Motrin Ib] 400 mg PO Q8H PRN 07/22/21 07/22/21 Levothyroxine Sodium [Synthroid] 88 mcg PO DAILY 07/22/21 07/22/21 Previous Rx's Medication Instructions Recorded Phenylephrine HCl/[place] Butter 1 supp RECTAL BID #12 suppositor 07/22/21 [Preparation H Suppository] Allergies Allergy/AdvReac Type Severity Reaction Status Date / Time metoclopramide [From Reglan] AdvReac Hallucinati Verified 09/18/23 20:23 ons Review of Systems ROS Statement: Those systems with pertinent positive or pertinent negative responses have been documented in the HPI. ROS Other: All systems not noted in ROS Statement are negative. Past Medical History Past Medical History: Thyroid Disorder Additional Past Medical History / Comment(s): Cervical pain/degenerative disc changes, chronic back pain, hashimotos History of Any Multi-Drug Resistant Organisms: MRSA Date of last positivie culture/infection: 2007 MDRO Source:: R lower leg Past Surgical History: Appendectomy, Hysterectomy Additional Past Surgical History / Comment(s): Abdominal laparoscopies, malrotation surgery 2010, 4 bilateral knee surgeries/ACL repairs and meniscus surgery Past Anesthesia/Blood Transfusion Reactions: No Reported Reaction Past Psychological History: PTSD Smoking Status: Never smoker Past Alcohol Use History: None Reported Past Drug Use History: None Reported - Past Family History Mother Family Medical History: Thyroid Disorder Additional Family Medical History / Comment(s): Rogers's Father Family Medical History: Hypertension Additional Family Medical History / Comment(s): DDD General Exam Limitations: no limitations General appearance: alert, in no apparent distress Head exam: Present: atraumatic, normocephalic, normal inspection Eye exam: Present: normal appearance, PERRL, EOMI. Absent: scleral icterus, conjunctival injection, periorbital swelling ENT exam: Present: normal exam, normal oropharynx, mucous membranes moist Neck exam: Present: normal inspection. Absent: tenderness, meningismus, lymphadenopathy Respiratory exam: Present: normal lung sounds bilaterally. Absent: respiratory distress, wheezes, rales, rhonchi, stridor Cardiovascular Exam: Present: regular rate, normal rhythm, normal heart sounds. Absent: systolic murmur, diastolic murmur, rubs, gallop, clicks Neurological exam: Present: alert, oriented X3 Psychiatric exam: Present: normal affect, normal mood Skin exam: Present: warm, dry, intact, normal color. Absent: rash Course Vital Signs 09/18/23 09/18/23 20:22 23:24 Temperature 98.6 F Pulse Rate 81 68 Respiratory 18 16 Rate Blood Pressure 142/94 117/84 O2 Sat by Pulse 98 99 Oximetry Medical Decision Making - Medical Decision Making Was pt. sent in by a medical professional or institution (JANET Steele, SOLAR THERMAL TECHNICIAN, urgent care, hospital, or correction...) When possible be specific @ -No Did you speak to anyone other than the patient for history (EMS, parent, family, police, friend...)? What history was obtained from this source @ -No Did you review nursing and triage notes (agree or disagree)? Why? @ -I reviewed and agree with nursing and triage notes Were old charts reviewed (outside hosp., previous admission, EMS record, old EKG, old radiological studies, urgent care reports/EKG's, correction records)? Report findings @ -No old charts were reviewed Differential Diagnosis (chest pain, altered mental status, abdominal pain women, abdominal pain men, vaginal bleeding, weakness, fever, dyspnea, syncope, headache, dizziness, GI bleed, back pain, seizure, CVA, palpatations, mental health, musculoskeletal)? @ -Differential Dyspnea: Strep pharyngitis, viral URI, foreign body, coronary syndrome, arrhythmia, tamponade, asthma, COPD, pulmonary embolism, pneumonia, pneumothorax, pulmonary effusion, anaphylaxis, diabetic ketoacidosis, flailed chest, pulmonary contusion, diaphragmatic rupture, anemia, neuromuscular, this is not meant to be an all-inclusive list. EKG interpreted by me (3pts min.). @ -None X-rays interpreted by me (1pt min.). @ -Chest x-ray interpreted by me reveals no acute process CT interpreted by me (1pt min.). @ -None done U/S interpreted by me (1pt. min.). @ -None done What testing was considered but not performed or refused? (CT, X-rays, U/S, labs)? Why? @ -Patient declined strep, COVID, flu, RSV testing What meds were considered but not given or refused? Why? @ -None Did you discuss the management of the patient with other professionals (professionals i.e. , PA, SOLAR THERMAL TECHNICIAN, lab, RT, psych nurse, social services technician, steel fabricator, teacher, fire management officer, high risk case manager)? Give summary @ -No Was smoking cessation discussed for >3mins.? @ -No Was critical care preformed (if so, how long)? @ -No Were there social determinants of health that impacted care today? How? (Homelessness, low income, unemployed, alcoholism, drug addiction, transportation, low edu. Level, literacy, decrease access to med. care, intermediate, rehab)? @ -No Was there de-escalation of care discussed even if they declined (Discuss DNR or withdrawal of care, Hospice)? DNR status @ -No What co-morbidities impacted this encounter? (DM, HTN, Smoking, COPD, CAD, Cancer, CVA, ARF, Chemo, Hep., AIDS, mental health diagnosis, sleep apnea, morbid obesity)? @ -None Was patient admitted / discharged? Hospital course, mention meds given and route, prescriptions, significant lab abnormalities, going to OR and other pertinent info. @ -Patient was discharged. Patient was seen and evaluated for sore throat x 1 day with shortness of breath. Patient believes symptoms are due to dust inhalation at work this morning. Vital signs are unremarkable, patient is satting 98% on room air. Upon physical examination, patient is resting comfortably and is in no acute distress. Lung sounds are clear to auscultation bilaterally. No sign of bacterial infection. Patient was given oral dexamethasone. Declines strep, flu, RSV, COVID testing today. Chest x-ray obtained and reveals no acute process. Final read pending, Dr. Alvarez will call with results if abnormal. Upon reevaluation, patient states symptoms have improved since oral steroid. Discussed there are no signs of emergent etiology causing symptoms today. Patient agrees and feels stable for discharge. Return precautions discussed. Case discussed with my ED attending Dr. Alvarez. Patient discharged in stable condition. Undiagnosed new problem with uncertain prognosis? @ -No Drug Therapy requiring intensive monitoring for toxicity (Heparin, Nitro, Insulin, Cardizem)? @ -No Were any procedures done? @ -No Diagnosis/symptom? @ -Acute bronchospasm due to dust exposure, sore throat Acute, or Chronic, or Acute on Chronic? @ -Acute Uncomplicated (without systemic symptoms) or Complicated (systemic symptoms)? @ -Uncomplicated Side effects of treatment? @ -No Exacerbation, Progression, or Severe Exacerbation? @ -No Poses a threat to life or bodily function? How? (Chest pain, [place], [place], pneumonia, PE, COPD, DKA, ARF, appy, cholecystitis, CVA, Diverticulitis, Homicidal, Suicidal, threat to staff... and all critical care pts) @ -No Disposition Clinical Impression: Acute bronchospasm Disposition: HOME SELF-CARE Condition: Stable Additional Instructions: Please return to the Emergency Department if symptoms worsen or any other concerns. Is patient prescribed a controlled substance at d/c from ED?: No Referrals: Moreno Mcwilliams MD [Primary Care Provider] - 1-2 days Time of Disposition: 23:18
[2023-09-18] MEDS: dexAMETHasone 2 MG TAB PO STA (21:38)
[2023-09-18 23:27] VITALS: BP 117/84; PULSE 68; RESP 16
--- NOTE | 2023-09-19 00:02 | XR ---
EXAM: XR Chest, 2 Views CLINICAL HISTORY: ITS.REASON XR Reason: shortness of breath TECHNIQUE: Frontal and lateral views of the chest. COMPARISON: No relevant prior studies available. FINDINGS: Lungs: Unremarkable. No consolidation. Pleural space: Unremarkable. No pneumothorax. Heart: Unremarkable. No cardiomegaly. Mediastinum: Unremarkable. Normal mediastinal contour. Bones/joints: Unremarkable. No acute fracture. IMPRESSION: Normal chest x-rays.
== END 2023-09-18 23:24 | disposition home or self-care (01) ==
LOC: EC 20:17
DX: J98.01 Acute bronchospasm (principal); Z88.8 Allergy status to other drugs, medicaments and biological substances
CPT/HCPCS: 71046; 99283; J8540

== ENCOUNTER → 2023-12-14 | Outpatient (CLI) | payer BC ==
--- NOTE | 2023-12-14 17:46 | US ---
EXAMINATION TYPE: US kidneys/renal and bladder DATE OF EXAM: 12/14/2023 COMPARISON: NONE CLINICAL INDICATION: Female, 43 years old with history of N13.30 UNSPECIFIED HYDRONEPHROSIS; recently passed stones, no symptoms today TECHNIQUE: Grayscale and color Doppler imaging of the bilateral kidneys and urinary bladder: FINDINGS: EXAM MEASUREMENTS: Right Kidney: 9.9 x 4.3 x 4.74 cm Left Kidney: 10.4 x 4.1 x 5.8 cm Right Kidney: No hydronephrosis or masses seen Left Kidney: No hydronephrosis or masses seen Bladder: wnl There is no evidence for hydronephrosis at this point in time. No nephrolithiasis is seen. No alexander s are identified. The urinary bladder is anechoic. IMPRESSION: No evidence for obstructive uropathy or renal calculus. [facility], , 12/14/2023 5:43 PM
== END | disposition home or self-care (01) ==
LOC: RADUSWWP 15:44
PROVIDERS: ATTEND Urology
DX: N13.30 Unspecified hydronephrosis (principal)
CPT/HCPCS: 76770

== ENCOUNTER → 2024-07-07 | Outpatient (CLI) | payer BC ==
--- NOTE | 2024-07-07 15:39 | US ---
EXAMINATION TYPE: US thyroid st tissue head/neck DATE OF EXAM: 07/07/2024 COMPARISON: US 07/15/2023 CLINICAL INDICATION: Female, 43 years old with history of E04.1 NONTOXIC SINGLE THYROID NODULE; Pt on levothyroxine. Hx FNA TECHNIQUE: Grayscale and color Doppler imaging of the thyroid gland. FINDINGS: GLAND SIZE: Right Lobe: 6.0 x 1.9 x 1.7 cm Overall Parenchyma: heterogeneous Left Lobe: 6.1 x 1.5 x 1.8 cm Overall Parenchyma: heterogeneous Isthmus Thickness: 0.46 cm NODULES RIGHT: # of nodules measured on right: 1 measured, many additional tiny subcentimeter nodules seen within the gland 1. 1.7 X 1.3 x 1.1 cm, mid mid, solid or almost completely solid, heterogeneous hypoechoic TR 4 nod ule, which is wider than tall, with smooth margins, with echogenic foci. Prior size: 0.9 x 1.1 x 0.7 cm LEFT: # of nodules measured on left: 3 measured. Additional tiny subcentimeter nodules seen withi n the gland 1. 1.6 X 2.0 x 0.9 cm, lower medial, solid or almost completely solid, hypoechoic TR 4 nodule, whic h is wider than tall, with smooth margins, with echogenic foci. Prior size: 1.4 x 0.9 x 1.8 cm 2. 1.0 X 1.0 x 0.9 cm, posterior mid mid, solid or almost completely solid, hypoechoic TR 4 nodule, which is wider than tall, with smooth margins, with echogenic foci. Prior size: does not correlate 3. 0.9 X 0.9 x 0.6 cm mid to lower pole solid or almost completely solid, hypoechoic TR 4 nodule, w hich is wider than tall, with smooth margins, without echogenic foci. Prior size: 1.0 x 0.7 x 0.9 cm ISTHMUS: # of nodules measured in the isthmus: 0 Bilateral neck scanned, no evidence of lymphadenopathy. IMPRESSION: 1. Multinodular goiter. 2. The dominant TR4 nodule on the right currently measures 1.7 cm versus 1.1 cm cyst, previously. FNA can be performed. 3. A dominant left lower pole TR4 nodule now measures 2.0 cm versus 1.8 cm, previously. FNA if not pr eviously performed. 4. Other nodules can be followed. TR4: If nodule size is ? 1.5 cm, FNA is recommended. If nodule size is ? 1.0 cm, follow-up imaging at 1, 2, 3, and 5 years is recommended. [facility], Workstation: [facility], 07/07/2024 3:37 PM
== END | disposition home or self-care (01) ==
LOC: RADUSWWP 14:56
PROVIDERS: ATTEND Family Medicine
DX: E04.2 Nontoxic multinodular goiter (principal)
CPT/HCPCS: 76536